=== PATIENT | male | born 1995 | race Hispanic/Latino ===

== ENCOUNTER 2017-06-10 20:43 | Emergency (ER) | payer SELFPAY ==
[2017-06-10 21:32] LABS: #Basophils 0.1 thou/uL (0.0-0.2); #Eosinphils 0.1 thou/uL (0.0-0.7); #Lymphocytes 1.8 thou/uL (1.20-3.40); #Monocytes 0.5 thou/uL (0.11-0.59); #Neutrophils 4.8 thou/uL (1.40-6.50); %Basophils 0.7 % (0.0-1.0); %Eosinophils 1.4 % (0.0-10.0); %Lymphocytes 25.1 % (21.0-51.0); %Monocytes 6.3 % (0.0-10.0); %Neutrophils 66.5 % (42.0-75.0); Hemoglobin 14.7 g/dL (14.0-18.0); Mean Corpuscular HGB CONC 35.1 g/dL (32.0-36.0); Mean Corpuscular Hemoglobin 29.4 pg (27.0-31.0); Mean Corpuscular Volume 83.7 fl (80.0-94.0); Mean Platelet Volume 7.3 fL (7.4-10.4); Platelet Count 245 thou/uL (130-400); RBC Distribution Width 11.5 % (11.5-14.5); Red Blood Cell (RBC) Count 5.02 mill/uL (4.70-6.10); White Blood Cell (WBC) Count 7.3 thou/uL (4.8-10.8)
--- NOTE | 2017-06-10 21:34 | RAD ---
TWO VIEWS OF THE CHEST: 06/10/17 COMPARISON: None. HISTORY: Chest pain. FINDINGS: Lungs are clear. Heart and mediastinal contours are unremarkable as are the osseous structures. IMPRESSION: No acute findings. POS: [facility]
[2017-06-10 21:49] LABS: ALT (SGPT) 19 U/L (8-55); AST (SGOT) 25 U/L (5-34); Albumin 4.9 g/dL (3.5-5.0); Alkaline Phosphatase 121 U/L (40-150); Anion Gap 10 mmol/L (10-20); BUN (Urea Nitrogen) 17 mg/dL (8.9-20.6); Bilirubin, Total 0.6 mg/dL (0.2-1.2); Calc. Creatinine Clearance 0 mL/min (70-130); Calcium 9.7 mg/dL (7.8-10.44); Carbon Dioxide 28 mmol/L (22-29); Chloride 106 mmol/L (98-107); Estimated GFR-MDRD Greater than 90; Glucose 86 mg/dL (70-105); Potassium 3.6 mmol/L (3.5-5.1); Protein, Total 7.9 g/dL (6.0-8.3); Sodium 140 mmol/L (136-145)
[2017-06-10 21:52] LABS: CKMB 3.6 ng/mL (0-6.6); Troponin I Less than 0.010 ng/mL (< 0.028)
[2017-06-10] MEDS ORDERED: Ibuprofen 800 MG TAB ONE (22:58)
== END 2017-06-10 23:46 | disposition home or self-care (01) ==
LOC: ERS 20:43
DX: R07.89 Other chest pain (principal); F41.9 Anxiety disorder, unspecified
CPT/HCPCS: 36415; 71046; 80053; 82553; 84484; 85025; 93005

== ENCOUNTER 2018-02-23 23:01 | Inpatient (IN) | payer SELFPAY ==
[2018-02-23] MEDS ORDERED: Pantoprazole 40 MG VIAL ONE (23:31)
[2018-02-23] MEDS ORDERED: Ondansetron PF 4 MG/2 ML Vial ONE (23:31)
[2018-02-23] MEDS ORDERED: Dicyclomine 20 MG TAB ONE ×2 (23:31→23:39)
[2018-02-23 23:33] LABS: #Eosinphils 0.1 thou/uL (0.0-0.7); #Lymphocytes 1.3 thou/uL (1.20-3.40); #Monocytes 0.7 thou/uL (0.11-0.59); #Neutrophils 11.1 thou/uL (1.40-6.50); %Basophils 0.4 % (0.0-1.0); %Lymphocytes 9.8 % (21.0-51.0); %Neutrophils 83.8 % (42.0-75.0); Hemoglobin 15.2 g/dL (14.0-18.0); Mean Corpuscular HGB CONC 33.5 g/dL (32.0-36.0); Mean Corpuscular Hemoglobin 28.7 pg (27.0-31.0); Mean Corpuscular Volume 85.8 fL (78.0-98.0); Mean Platelet Volume 8.3 fL (7.4-10.4); Platelet Count 230 thou/uL (130-400); RBC Distribution Width 11.3 % (11.5-14.5); Red Blood Cell (RBC) Count 5.29 mill/uL (4.70-6.10); White Blood Cell (WBC) Count 13.2 thou/uL (4.8-10.8)
[2018-02-23 23:41] LABS: Bilirubin Negative (Negative); Blood, Urine Negative (Negative); Clarity CLEAR (Clear); Glucose, Urine (Dipstick) Negative (Negative); Leukocyte Negative (Negative); Nitrite Negative (Negative); Protein, Urine (Dipstick) Negative (Neg-Trace); Specific Gravity, Urine 1.025 (1.002-1.036); Urobilinogen 0.2 mg/dL (0.2-1.0)
[2018-02-23] MEDS ORDERED: Lidocaine Viscous Sol 2% 15 ml UD Cup ONE (23:45)
[2018-02-23] MEDS ORDERED: Mag-Al 1200 mg/1200 mg/30 ML UDCUP ONE (23:45)
[2018-02-23 23:53] LABS: ALT (SGPT) 17 U/L (8-55); AST (SGOT) 18 U/L (5-34); Alkaline Phosphatase 125 U/L (40-150); Anion Gap 12 mmol/L (10-20); BUN (Urea Nitrogen) 12 mg/dL (8.9-20.6); Bilirubin, Total 0.5 mg/dL (0.2-1.2); Calc. Creatinine Clearance 0 mL/min (70-130); Calcium 9.6 mg/dL (7.8-10.44); Carbon Dioxide 23 mmol/L (22-29); Chloride 106 mmol/L (98-107); Estimated GFR-MDRD Greater than 90; Globulin 3.1 g/dL (2.4-3.5); Glucose 110 mg/dL (70-105); Lipase 38 U/L (8-78); Potassium 3.4 mmol/L (3.5-5.1); Protein, Total 8.1 g/dL (6.0-8.3); Sodium 138 mmol/L (136-145)
[2018-02-24] MEDS ORDERED: Morphine 4 MG/ML VIAL ONE ×2 (01:04→13:15)
[2018-02-24] MEDS ORDERED: Fentanyl 100 MCG/2 ML VIAL ONE ×3 (01:49→19:57)
[2018-02-24] MEDS ORDERED: Piperacillin/Tazobactam 3.375 GM VIAL ONE ×2 (01:51→12:47)
[2018-02-24 04:09] VITALS: BMI 27.4
[2018-02-24] MEDS ORDERED: Acetaminophen 325 MG TAB PO PRN ×3 (04:26→20:36)
[2018-02-24] MEDS ORDERED: Ondansetron PF 4 MG/2 ML Vial IVP PRN (04:26)
[2018-02-24] MEDS ORDERED: Ondansetron ODT 4 MG TAB SL PRN (04:26)
[2018-02-24] MEDS ORDERED: Morphine 4 MG/ML VIAL SLOW IVP PRN ×2 (04:26→20:43)
--- NOTE | 2018-02-24 08:18 | CT ---
PRELIMINARY REPORT/[facility]/EMERGENTY AFTER-HOURS PROCEDURE Addendum created by Yeison Steen MD on 02/24/2018 1:25 AM Central Time ([place] & [place]) THIS REPORT CONTAINS FINDINGS THAT MAY BE CRITICAL TO PATIENT CARE. The findings were verbally commun icated via telephone conference with MARLENE WALKER at 1:24 AM COMPOSITION PROFESSOR on 02/24/2018. The findings wer e acknowledged and understood. Initial Report created on 02/24/2018 1:23 AM Central Time ([place] & [place]) CT Abdomen and Pelvis With Contrast EXAM DATE/TIME: 02/24/2018 12:25 AM CLINICAL HISTORY: 23 years old, male; Pain; Abdominal pain; Generalized; Patient HX: Er 12; M23 presents to the ed C/O abd pain (generalized) onset today. PT. Reports the pain was sudden onset while driving. Associated w ith nausea and urinary retention. Denies HX of gi issues. Denies vomiting TECHNIQUE: Axial computed tomography images of the abdomen and pelvis with intravenous contrast. Coronal reformatted images were created and reviewed. COMPARISON: No relevant prior studies available. FINDINGS: Lower thorax: No acute findings. ABDOMEN: Liver: Normal. Gallbladder and bile ducts: Normal. Pancreas: Normal. Spleen: Normal. Adrenals: Normal. Kidneys and ureters: Normal. Stomach and bowel: Normal. Appendix: Appendix is abnormally dilated, measuring 11 mm in maximal diameter. Mild appendiceal wall thickening and hyper enhancement, with minimal periappendiceal inflammatory stranding. No perforation or abscess. Appendix is located in retrocecal position. PELVIS: Bladder: Unremarkable as visualized. Reproductive: Unremarkable as visualized. ABDOMEN and PELVIS: Intraperitoneal space: Normal. No free air. No significant fluid collection. Bones/joints: No acute abnormality. Soft tissues: Normal. Vasculature: Normal. No abdominal aortic aneurysm. Lymph nodes: Normal. No enlarged lymph nodes. IMPRESSION: Acute appendicitis, without evidence of perforation or abscess. Appendix in retrocecal position. Thank you for allowing us to participate in the care of your patient. Dictated and Authenticated by: Yeison Steen MD 02/24/2018 1:23 AM Central Time ([place] & Lit) FINAL REPORT CT ABDOMEN WITH CONTRAST CT PELVIS WITH CONTRAST: History: Nausea. Generalized abdominal pain. Comparison: None. FINDINGS: This report is in agreement with the preliminary report by [facility]. There is a appendicitis. No CT eviden ce of abscess or perforation. POS: [facility]
[2018-02-24] MEDS: D5 0.9% NS w/ 20 mEq KCl 1,000 ML IV SCH ×2 (09:07→17:46)
[2018-02-24 09:31] LABS: #Eosinphils 0.1 thou/uL (0.0-0.7); #Lymphocytes 1.5 thou/uL (1.20-3.40); #Monocytes 0.6 thou/uL (0.11-0.59); #Neutrophils 8.4 thou/uL (1.40-6.50); %Basophils 0.3 % (0.0-1.0); %Eosinophils 1.2 % (0.0-10.0); %Lymphocytes 14.2 % (21.0-51.0); %Monocytes 5.3 % (0.0-10.0); Hemoglobin 14.2 g/dL (14.0-18.0); Mean Corpuscular HGB CONC 34.1 g/dL (32.0-36.0); Mean Corpuscular Hemoglobin 29.4 pg (27.0-31.0); Mean Corpuscular Volume 86.3 fL (78.0-98.0); Mean Platelet Volume 8.1 fL (7.4-10.4); Platelet Count 188 thou/uL (130-400); RBC Distribution Width 11.4 % (11.5-14.5); Red Blood Cell (RBC) Count 4.84 mill/uL (4.70-6.10); White Blood Cell (WBC) Count 10.7 thou/uL (4.8-10.8)
[2018-02-24] MEDS ORDERED: ISOVUE-370 76%-LOCM 1 ML ONE (11:28)
[2018-02-24] MEDS: Piperacillin/Tazobactam 3.375 GM in Sodium Chloride 0.9% 100 ML IVPB SCH ×3 (11:50→23:01)
[2018-02-24] MEDS ORDERED: Sodium Chloride 0.9% 100 ML ONE (12:48)
--- NOTE | 2018-02-24 13:12 | HP ---
HISTORY OF PRESENT ILLNESS: Mr. Jalyn Gale is a 23-year-old man, who developed sudden onset of upper central abdominal pain yesterday evening about 2 hours after eating. He was driving at that time and went home and decided to take a nap, but kept waking up with the pain, which was getting worse. He had nausea, but was unable to vomit. He denies any fevers or chills. He came into the emergency room and was found to have an elevated white count and a CT which showed evidence of retrocecal appendicitis. He was admitted and placed on IV antibiotics and pain medication and is feeling slightly better today, but still has the pain. The pain is made worse by walking and improved by pain medication. He is unable to identify any other triggering or alleviating factors. PAST MEDICAL HISTORY: None. PAST SURGICAL HISTORY: None. ALLERGIES: NO KNOWN DRUG ALLERGIES. MEDICATIONS: No medications. FAMILY HISTORY: None. REVIEW OF SYSTEMS: Ten-system review of systems is negative except per HPI. SOCIAL HISTORY: The patient does not smoke, drink, or use illicit drugs. 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 LABORATORY DATA: White count was elevated on admission at 13, today it is 10.7, which is upper normal, but he still has a left shift. CT images are reviewed and I agree with the written report. The patient has an inflamed, dilated retrocecal appendix. PHYSICAL EXAMINATION: VITAL SIGNS: The patient has been afebrile since his admission with normal vital signs. GENERAL: Reveals a healthy-appearing man, who is in no acute distress. He is not flushed or toxic in appearance. He is not jaundiced or icteric. HEENT: Unremarkable. NECK: Supple without lymphadenopathy or thyroid nodules. HEART: Regular in its rate and rhythm without murmurs, rubs, or gallops. LUNGS: Clear to auscultation bilaterally. ABDOMEN: Soft and nondistended. He has not had any palpable masses or hernias. He is very tender to palpation in the right lower quadrant and mildly tender to palpation elsewhere, although he indicates the point of greatest pain in the supraumbilical area, and pain does radiate to that area with palpation in the right lower quadrant. EXTREMITIES: Warm and well perfused without edema. NEURO: No focal deficits. PSYCHIATRIC: Alert, oriented, and appropriate. ASSESSMENT: Acute appendicitis. PLAN: Laparoscopic appendectomy. The patient's diagnosis and recommended treatment were discussed with him. Inherent risks of surgery were also discussed. These include, but are not limited to, bleeding, infection, risks of anesthesia, damage to nearby structures including bowel, bladder, and blood vessels, need for open surgery or other procedures. He understands and accepts these risks and wishes to proceed. He has been proceeded for the operating room and is on scheduled Zosyn in the interim. All of his questions were answered. Job ID: [id number]
[2018-02-24] MEDS ORDERED: Lidocaine 1% PF 5 ML VIAL ONE (16:21)
[2018-02-24] MEDS ORDERED: Succinylcholine Chloride 20 MG/ML 10 ml SYRINGE FS ONE (16:21)
[2018-02-24] MEDS ORDERED: Dexamethasone 20 MG/5 ML VIAL ONE (16:21)
[2018-02-24] MEDS ORDERED: Rocuronium Bromide 10 MG/ML (10ML VIAL) ONE (16:21)
[2018-02-24] MEDS ORDERED: Glycopyrrolate 0.2 MG/ML 5 ML SYRINGE ONE (16:21)
[2018-02-24] MEDS ORDERED: PROPOFOL 200 MG/20 ML VIAL ONE (16:21)
[2018-02-24] MEDS ORDERED: Ondansetron PF 4 MG/2 ML Vial ONE (16:21)
[2018-02-24] MEDS ORDERED: Bupivacaine/Epinephrine 0.25% 30 ML VIAL ONE (17:18)
[2018-02-24] MEDS ORDERED: Midazolam HCl 2 mg/2 ml Vial ONE (18:14)
[2018-02-24] MEDS ORDERED: Fentanyl 250 MCG/5 ML VIAL ONE (18:14)
[2018-02-24] MEDS ORDERED: Promethazine HCl 25 MG/ML VIAL IM PRN (19:34)
[2018-02-24] MEDS ORDERED: Ondansetron HCl/PF 4 MG/2 ML Vial IVP PRN (19:34)
[2018-02-24] MEDS ORDERED: Promethazine HCl 25 MG/ML VIAL SLOW IVP PRN (19:34)
[2018-02-24] MEDS ORDERED: HYDROcodone/Acetaminophen 5/325 mg Tablet PO PRN (20:33)
[2018-02-24] MEDS ORDERED: Ibuprofen 200 MG TAB PO PRN ×2 (20:36→20:37)
[2018-02-24] MEDS ORDERED: Ibuprofen 600 MG TAB PO PRN (20:38)
[2018-02-24] MEDS ORDERED: Promethazine 25 MG TAB PO PRN (20:40)
[2018-02-24] MEDS ORDERED: Ondansetron ODT 4 MG TAB PO PRN (20:42)
[2018-02-24] MEDS ORDERED: Ondansetron PF 4 MG/2 ML Vial SLOW IVP PRN (20:42)
[2018-02-24] MEDS ORDERED: Morphine 2 MG/ML SYRINGE SLOW IVP PRN (20:43)
[2018-02-24] MEDS: D5 1/2 NS w/20 mEq KCL 1,000 ML IV SCH (21:51)
[2018-02-24] MEDS: HYDROcodone/Acetaminophen 5/325 mg Tablet PO PRN (23:01)
[2018-02-25] MEDS: HYDROcodone/Acetaminophen 5/325 mg Tablet PO PRN ×2 (03:36→07:24)
[2018-02-25 03:46] VITALS: TEMP 98
[2018-02-25] MEDS: Piperacillin/Tazobactam 3.375 GM in Sodium Chloride 0.9% 100 ML IVPB SCH ×2 (05:23→11:37)
[2018-02-25 06:31] LABS: #Lymphocytes 0.5 thou/uL (1.20-3.40); #Monocytes 0.1 thou/uL (0.11-0.59); #Neutrophils 9.3 thou/uL (1.40-6.50); %Basophils 0.1 % (0.0-1.0); %Lymphocytes 5.3 % (21.0-51.0); %Monocytes 1.3 % (0.0-10.0); %Neutrophils 93.2 % (42.0-75.0); Hemoglobin 15.1 g/dL (14.0-18.0); Mean Corpuscular HGB CONC 33.6 g/dL (32.0-36.0); Mean Corpuscular Hemoglobin 29.1 pg (27.0-31.0); Mean Corpuscular Volume 86.5 fL (78.0-98.0); Mean Platelet Volume 8.3 fL (7.4-10.4); Platelet Count 209 thou/uL (130-400); RBC Distribution Width 11.2 % (11.5-14.5); Red Blood Cell (RBC) Count 5.18 mill/uL (4.70-6.10)
[2018-02-25] MEDS: D5 1/2 NS w/20 mEq KCL 1,000 ML IV SCH (06:34)
[2018-02-25 06:45] LABS: Anion Gap 13 mmol/L (10-20); BUN (Urea Nitrogen) 8 mg/dL (8.9-20.6); Calc. Creatinine Clearance 130 mL/min (70-130); Calcium 9.7 mg/dL (7.8-10.44); Carbon Dioxide 24 mmol/L (22-29); Chloride 104 mmol/L (98-107); Estimated GFR-MDRD Greater than 90; Glucose 127 mg/dL (70-105); Sodium 137 mmol/L (136-145)
[2018-02-25] MEDS ORDERED: traMADol HCl 50 MG TAB PO PRN ×2 (11:58)
[2018-02-25] MEDS ORDERED: HYDROcodone/Acetaminophen 7.5/325 mg Tablet PO PRN (11:58)
--- NOTE | 2018-02-25 12:12 | PDOC.OP ---
Operative Note - Operative Note Operative Note: PROCEDURE: Laparoscopic appendectomy SURGEON: Cynthia Salmeron M.D. DATE OF PROCEDURE: 02/24/2018 PREOPERATIVE DIAGNOSIS: Appendicitis POSTOPERATIVE DIAGNOSIS: Appendicitis HISTORY: Patient with a one day history of right-sided abdominal pain and acute appendicitis by CT scan. Recommendation was made to proceed with laparoscopic appendectomy. FINDINGS: Acutely inflamed retrocecal appendicitis without perforation. DESCRIPTION OF PROCEDURE: After informed consent was obtained and appropriate antibiotics continued, the patient was taken to the operating room and placed in the supine position and general endotracheal anesthesia was administered. The bladder was decompressed with a Collins catheter and the abdomen was prepped and draped in the standard sterile fashion. Local anesthesia was infused to the skin and subcutaneous tissues superior to the umbilicus. A transverse skin incision was made and a Veress needle placed into the abdominal cavity and carbon dioxide gas insufflated without difficulty. Opening pressure was less than 5. Carbon dioxide gas was insufflated to an intra-abdominal pressure 15 and the patient tolerated this well. The Veress needle was withdrawn and a [place] port advanced under direct laparoscopic vision into the abdominal cavity. Two additional ports were placed in the suprapubic and left lateral abdomen under direct laparoscopic vision after local anesthesia was infused at these sites. The appendix was identified and appeared inflamed but not perforated. The appendix was grasped by the mesoappendix and elevated. The mesoappendix was then sequentially ligated and divided down to the base of the appendix, which was normal in appearance and was clearly seen to be at the confluence of the tenia. Two Endoloops were placed around the base of the appendix and the appendix was divided between these Endoloops, placed into an EndoCatch bag and drawn out through the suprapubic incision. The suprapubic trocar was then replaced and the operative site was easily irrigated to clear. The suprapubic trocar was removed and the fascia closed under direct laparoscopic vision with a 0 Vicryl suture on a GraNee needle with excellent technical result. The left lateral trocar was then removed and hemostasis verified. Carbon dioxide gas was desufflated through the umbilical trocar which was then removed. Due to the patient's thin body habitus, the fascia at the umbilical incision was visible and this was closed under direct vision with a 0 Vicryl suture on a UR 6 needle with excellent technical result. The skin incisions were irrigated and additional local anesthesia infused at each site. The skin was closed with 4-0 subcuticular Monocryl sutures and Dermabond dressings were placed. The patient was extubated and taken to the recovery room in good condition. Estimated blood loss was minimal. There were no complications. SPECIMEN: Appendix.
[2018-02-25 12:37] VITALS: BP 134/77
[2018-02-25] MEDS: HYDROcodone/Acetaminophen 7.5/325 mg Tablet PO PRN ×2 (13:01→16:44)
--- NOTE | 2018-02-27 11:46 | EKG ---
Test Reason : Blood Pressure : / mmHG Vent. Rate : 065 BPM Atrial Rate : 065 BPM P-R Int : 154 ms QRS Dur : 092 ms QT Int : 384 ms P-R-T Axes : 063 077 051 degrees QTc Int : 399 ms Normal sinus rhythm with sinus arrhythmia Nonspecific ST and T wave abnormality Abnormal ECG Confirmed by MARLENE WALKER ([id number]), editorial clerk THELMA GEORGE ([id number]) on 02/27/2018 11:45:55 AM Referred By: Confirmed By:MARLENE WALKER
== END 2018-02-25 16:50 | disposition home or self-care (01) | DRG 343 ==
LOC: ERS 23:01 → ERHOLD 02-24 02:07 → T4-B 02-24 03:54
PROVIDERS: ADMIT Specialist; ATTEND Specialist
PROC: 0DTJ4ZZ Resection of Appendix, Percutaneous Endoscopic Approach (ICD-10-PCS; principal; 2018-02-24)
DX: K35.80 Unspecified acute appendicitis (principal)
CPT/HCPCS: 36415; 74177; 80048; 80053; 81003; 83690; 85025; 88304; 93005; 96361; 96365; 96375; 96376; C9113; J1100; J2001; J2250; J2270; J2405; J2543; J2704; J3010; J7050

== ENCOUNTER 2018-03-07 20:53 | Emergency (ER) | payer SELFPAY ==
[~2018-03-07 20:53] MED LIST: Iopamidol 370 76% 100 ML VIAL ONE
[2018-03-07 21:28] LABS: #Basophils 0.1 thou/uL (0.0-0.2); #Eosinphils 0.1 thou/uL (0.0-0.7); #Lymphocytes 1.4 thou/uL (1.20-3.40); #Monocytes 0.4 thou/uL (0.11-0.59); #Neutrophils 4.8 thou/uL (1.40-6.50); %Basophils 0.9 % (0.0-1.0); %Eosinophils 1.3 % (0.0-10.0); %Monocytes 6.1 % (0.0-10.0); %Neutrophils 70.7 % (42.0-75.0); Hemoglobin 16.5 g/dL (14.0-18.0); Mean Corpuscular HGB CONC 33.5 g/dL (32.0-36.0); Mean Corpuscular Volume 86.5 fL (78.0-98.0); Platelet Count 216 thou/uL (130-400); RBC Distribution Width 11.1 % (11.5-14.5); White Blood Cell (WBC) Count 6.7 thou/uL (4.8-10.8)
[2018-03-07 21:48] LABS: ALT (SGPT) 17 U/L (8-55); AST (SGOT) 22 U/L (5-34); Albumin 5.2 g/dL (3.5-5.0); Alkaline Phosphatase 112 U/L (40-150); Anion Gap 14 mmol/L (10-20); BUN (Urea Nitrogen) 11 mg/dL (8.9-20.6); Bilirubin, Total 0.7 mg/dL (0.2-1.2); Calc. Creatinine Clearance 0 mL/min (70-130); Calcium 10.5 mg/dL (7.8-10.44); Carbon Dioxide 27 mmol/L (22-29); Chloride 104 mmol/L (98-107); Estimated GFR-MDRD 84; Globulin 3.3 g/dL (2.4-3.5); Glucose 94 mg/dL (70-105); Potassium 3.8 mmol/L (3.5-5.1); Protein, Total 8.5 g/dL (6.0-8.3); Sodium 141 mmol/L (136-145)
[2018-03-07] MEDS ORDERED: Ketorolac Tromethamine 30 MG/ML VIAL ONE (23:05)
--- NOTE | 2018-03-07 23:29 | CT ---
CT ABDOMEN AND PELVIS WITH IV CONTRAST: History: Abdominal pain. Recent appendectomy. Comparison: 02-24-18 FINDINGS: Lung bases are clear. The liver, spleen, kidneys, adrenal glands, and pancreas have a normal CT appea melody. The appendix is now surgically absent. Small pockets of gas posterior to the right colon are c onsistent with recent surgery. Small amount of free air within the anterior abdomen remains. IMPRESSION: Recent post-operative changes of the right lower quadrant. No evidence of complication. POS: [facility]
[2018-03-07 23:54] LABS: Bilirubin Negative (Negative); Blood, Urine Negative (Negative); Clarity CLEAR (Clear); Glucose, Urine (Dipstick) Negative (Negative); Leukocyte Negative (Negative); Nitrite Negative (Negative); Protein, Urine (Dipstick) Negative (Neg-Trace); Urobilinogen 0.2 mg/dL (0.2-1.0); pH, Urine 7.5 (5.0-9.0)
[2018-03-07 23:58] LABS: Specific Gravity, Urine Greater than 1.060 (1.002-1.036)
[2018-03-08 00:01] LABS: Bacteria/HPF None Seen HPF (None Seen); Hyaline Casts/LPF 0-3 HYALINE CAST LPF (0-3 Hyaline); RBC/HPF None Seen HPF (0-3); Squamous Epithelial None Seen HPF (0-3); WBC/HPF None Seen HPF (0-3)
== END 2018-03-08 00:19 | disposition home or self-care (01) ==
LOC: ERS 20:53
DX: R10.32 Left lower quadrant pain (principal); Z79.891 Long term (current) use of opiate analgesic
CPT/HCPCS: 36415; 74177; 80053; 81001; 83690; 85025; 96374; J1885; Q9967

== ENCOUNTER 2018-04-28 15:44 | Emergency (ER) | payer SELFPAY ==
[~2018-04-28 15:44] MED LIST changes: +ISOVUE-370 76%-LOCM 1 ML ONE; -Iopamidol 370 76% 100 ML VIAL ONE
[2018-04-28 20:58] LABS: #Lymphocytes 0.5 thou/uL (1.20-3.40); #Monocytes 0.7 thou/uL (0.11-0.59); #Neutrophils 10.5 thou/uL (1.40-6.50); %Basophils 0.2 % (0.0-1.0); %Eosinophils 0.1 % (0.0-10.0); %Lymphocytes 4.1 % (21.0-51.0); %Monocytes 5.6 % (0.0-10.0); %Neutrophils 89.9 % (42.0-75.0); Hemoglobin 13.6 g/dL (14.0-18.0); Mean Corpuscular HGB CONC 33.6 g/dL (32.0-36.0); Mean Corpuscular Hemoglobin 29.2 pg (27.0-31.0); Mean Corpuscular Volume 86.8 fL (78.0-98.0); Mean Platelet Volume 7.8 fL (7.4-10.4); Platelet Count 188 thou/uL (130-400); RBC Distribution Width 11.3 % (11.5-14.5); Red Blood Cell (RBC) Count 4.68 mill/uL (4.70-6.10); White Blood Cell (WBC) Count 11.7 thou/uL (4.8-10.8)
--- NOTE | 2018-04-28 21:11 | CT ---
CT ABDOMEN AND PELVIS WITH CONTRAST: 04/28/18 HISTORY: Abdominal pain. COMPARISON: CT abdomen and pelvis 03/07/18. FINDINGS: Lung bases are clear. No pericardial effusion. The spleen is unremarkable as well as the liver and gallbladder and pancreas. Adrenal glands are unre markable. Kidneys are unremarkable. The aortic contour is nonaneurysmal. There is mild diverticular disease of the sigmoid colon. No active inflammation. No dilated loops of large or small bowel. There is some mucosal edema and mild thickening of the ascending colon. Mild th ickening of the terminal ileum. IMPRESSION: Mild thickening of the colon may be sequela of underdistention. No acute inflammatory process within the abdomen or pelvis. POS: [facility]
[2018-04-28 21:14] LABS: ALT (SGPT) 14 U/L (8-55); AST (SGOT) 17 U/L (5-34); Albumin 4.5 g/dL (3.5-5.0); Alkaline Phosphatase 99 U/L (40-150); Anion Gap 12 mmol/L (10-20); BUN (Urea Nitrogen) 9 mg/dL (8.9-20.6); Calc. Creatinine Clearance 0 mL/min (70-130); Calcium 9.5 mg/dL (7.8-10.44); Carbon Dioxide 23 mmol/L (22-29); Chloride 103 mmol/L (98-107); Estimated GFR-MDRD Greater than 90; Globulin 2.6 g/dL (2.4-3.5); Glucose 99 mg/dL (70-105); Potassium 3.2 mmol/L (3.5-5.1); Protein, Total 7.1 g/dL (6.0-8.3); Sodium 135 mmol/L (136-145)
[2018-04-28] MEDS ORDERED: Ketorolac Tromethamine 30 MG/ML VIAL ONE (21:28)
== END 2018-04-28 21:45 | disposition home or self-care (01) ==
LOC: ERS 15:44
DX: M79.604 Pain in right leg (principal)
CPT/HCPCS: 36415; 74177; 80053; 85025; 96374; J1885; Q9966

== ENCOUNTER 2018-04-29 18:59 | Inpatient (IN) | payer SELFPAY ==
[2018-04-29] MEDS ORDERED: Ondansetron PF 4 MG/2 ML Vial ONE (19:47)
[2018-04-29 20:02] LABS: #Basophils 0.1 thou/uL (0.0-0.2); #Lymphocytes 0.2 thou/uL (1.20-3.40); #Monocytes 0.6 thou/uL (0.11-0.59); #Neutrophils 9.1 thou/uL (1.40-6.50); %Basophils 1.2 % (0.0-1.0); %Eosinophils 0.1 % (0.0-10.0); %Lymphocytes 2.2 % (21.0-51.0); %Monocytes 5.7 % (0.0-10.0); %Neutrophils 90.9 % (42.0-75.0); Hemoglobin 14.8 g/dL (14.0-18.0); Mean Corpuscular HGB CONC 33.9 g/dL (32.0-36.0); Mean Corpuscular Hemoglobin 28.9 pg (27.0-31.0); Mean Corpuscular Volume 85.2 fL (78.0-98.0); Mean Platelet Volume 7.5 fL (7.4-10.4); Platelet Count 186 thou/uL (130-400); RBC Distribution Width 11.6 % (11.5-14.5); Red Blood Cell (RBC) Count 5.13 mill/uL (4.70-6.10)
[2018-04-29] MEDS ORDERED: Ketorolac Tromethamine 30 MG/ML VIAL ONE (20:02)
[2018-04-29] MEDS ORDERED: Morphine 4 MG/ML VIAL ONE (20:25)
[2018-04-29 20:27] LABS: ALT (SGPT) 17 U/L (8-55); AST (SGOT) 19 U/L (5-34); Albumin 4.8 g/dL (3.5-5.0); Alkaline Phosphatase 108 U/L (40-150); Anion Gap 16 mmol/L (10-20); BUN (Urea Nitrogen) 12 mg/dL (8.9-20.6); Bilirubin, Total 1.1 mg/dL (0.2-1.2); Calc. Creatinine Clearance 0 mL/min (70-130); Calcium 10.3 mg/dL (7.8-10.44); Carbon Dioxide 21 mmol/L (22-29); Chloride 102 mmol/L (98-107); Estimated GFR-MDRD 79; Globulin 3.4 g/dL (2.4-3.5); Glucose 99 mg/dL (70-105); Lipase 9 U/L (8-78); Protein, Total 8.2 g/dL (6.0-8.3); Sodium 136 mmol/L (136-145)
--- NOTE | 2018-04-29 22:20 | CT ---
CT ABDOMEN AND PELVIS WITH CONTRAST: 04/29/18 HISTORY: Abdominal pain. COMPARISON: CT abdomen and pelvis 04/28/18. FINDINGS: Lung bases are clear. No pericardial effusion. The spleen is unremarkable as well as the pancreas, liver, and adrenal glands. There is high density material within the gallbladder likely contrast from the patient's CT examination yesterday. There are no dilated loops of large or small bowel. Continued mild thickening of the terminal ileum. New from the comparison examination from yesterday is inflammation around the right superficial ingui nal lymph node which measures 14 mm in short axis dimension. There is a right deep inguinal lymph nod e measuring 9 mm in short axis. No significant internal iliac adenopathy. No ventral hernia. No inguinal hernia. IMPRESSION: New from the comparison examination, inflammation along the right superficial inguinal lymph node steve suring 14 mm in short axis. Recommend correlation for a distal right lower extremity inflammatory pro cess. POS: [facility]
[2018-04-29] MEDS ORDERED: Ampicillin/Sulbactam 3 GM in Sodium Chloride 0.9% 100 ML IVPB SCH (22:30)
[2018-04-30] MEDS ORDERED: Ondansetron PF 4 MG/2 ML Vial IVP PRN (01:42)
[2018-04-30] MEDS ORDERED: Acetaminophen 325 MG TAB PO PRN (01:42)
[2018-04-30] MEDS: Sodium Chloride 0.9% 1,000 ML IV SCH ×3 (02:32→17:50)
[2018-04-30 02:35] LABS: #Lymphocytes 0.6 thou/uL (1.20-3.40); #Monocytes 0.6 thou/uL (0.11-0.59); #Neutrophils 6.9 thou/uL (1.40-6.50); %Basophils 0.2 % (0.0-1.0); %Eosinophils 0.1 % (0.0-10.0); %Lymphocytes 7.6 % (21.0-51.0); %Monocytes 6.9 % (0.0-10.0); %Neutrophils 85.2 % (42.0-75.0); Hemoglobin 13.9 g/dL (14.0-18.0); Mean Corpuscular Hemoglobin 29.6 pg (27.0-31.0); Mean Corpuscular Volume 87.2 fL (78.0-98.0); Mean Platelet Volume 7.7 fL (7.4-10.4); Platelet Count 164 thou/uL (130-400); RBC Distribution Width 11.4 % (11.5-14.5); White Blood Cell (WBC) Count 8.1 thou/uL (4.8-10.8)
--- NOTE | 2018-04-30 02:49 | PDOC.EVN ---
Event Note - Event Note Event Note: H&P [id number]
[2018-04-30] MEDS: Potassium Chloride 20 MEQ TAB PO SCH ×2 (03:00→03:32)
[2018-04-30 03:07] LABS: Anion Gap 12 mmol/L (10-20); BUN (Urea Nitrogen) 10 mg/dL (8.9-20.6); Calc. Creatinine Clearance 0 mL/min (70-130); Calcium 9.4 mg/dL (7.8-10.44); Carbon Dioxide 27 mmol/L (22-29); Chloride 103 mmol/L (98-107); Estimated GFR-MDRD 78; Glucose 105 mg/dL (70-105); Potassium 3.5 mmol/L (3.5-5.1); Sodium 138 mmol/L (136-145)
[2018-04-30 03:14] LABS: HIV (1/2) Antibody/Antigen Non-Reactive (NonReactive); HIV 1/2 INDEX 0.14 S/CO (<1.00)
--- NOTE | 2018-04-30 03:19 | HP ---
CHIEF COMPLAINT: Right groin pain as well as right leg cellulitis. HISTORY OF PRESENT ILLNESS: This is a 23-year-old male presenting to the hospital with right groin pain as well as having right lower extremity edema. The patient CT scan done and did not have any findings at that point in time. Appendix has been taken out. The patient was noted to have inflamed lymph node in the right groin of 9 cm in nature as well as another one that was a 14 mm in nature. The patient states that he did not have any fevers or chills at home. The patient denies any nausea, vomiting, diarrhea, constipation, chest pain, fevers, or shortness of breath. The patient states that these symptoms started approximately 1 month ago. The patient presented to the ER, otherwise, relatively stable and girlfriend at bedside. The patient had a detailed history performed. States that he does not perform any unconventional sexual activities, has only 1 sexual partner and has not had any interactions with anyone who has any disease processes. The patient is seen and examined in the ER. All questions answered. ALLERGIES: NO KNOWN DRUG ALLERGIES. HOME MEDICATIONS: None. PAST MEDICAL HISTORY: None. SOCIAL HISTORY: Nondrinker, nonsmoker. FAMILY HISTORY: None. REVIEW OF SYSTEMS: All systems reviewed, pertinent positive in HPI, otherwise negative. PHYSICAL EXAMINATION: VITAL SIGNS: Blood pressure is 120/80, respiratory rate of 18, temperature of 98, O2 saturation 99% on room air. GENERAL: Lying in bed, in no acute discomfort. NECK: Supple, mobile, nontender. Thyroid appreciated. CARDIOVASCULAR: Regular rate and rhythm. S1, S2. No murmurs, rubs, or gallops appreciated. PULMONARY: Clear to auscultation bilaterally. No increase in AP diameter. ABDOMEN: Positive bowel sounds. Soft, nontender in the upper quadrants; however, in right lower quadrant, he did have some abdominal tenderness as well as with right hip flexion. EXTREMITIES: 2+ pedal pulses. No cyanosis, clubbing, or edema noted. Right lower extremity on the medial side, the patient did have cellulitic rash present as well. NEUROLOGICAL: Cranial nerves 2 through 12 intact. No loss of motor or sensory function. LABORATORY DATA: CBC normal. Basic metabolic panel normal except for a potassium of 3. ASSESSMENT: 1. Right inguinal lymphadenopathy. 2. Right lower extremity cellulitis. PLAN: At this point in time, it appears indeterminate as to what is going on with the patient's lymph node. We will consult Infectious Disease. We will obtain blood cultures HIV. The patient given antibiotics in the ER. However, at this point in time, given no signs of SIRS or sepsis, we will hold off on any antibiotics. Full supportive care to be done, p.r.n. pain medications to be done. The patient wishes to remain a full code. We will await subspecialist input as well as workup results to be obtained and then adjust patient's plan of care. The patient's condition, prognosis, case and plan discussed with the patient's girlfriend at length. They understand and agree with this plan. Job ID: [id number]
[2018-04-30] MEDS: Morphine 4 MG/ML VIAL SLOW IVP PRN ×4 (03:27→22:48)
[2018-04-30] MEDS ORDERED: Promethazine HCl 12.5 MG in Sodium Chloride 0.9% 50 ML IVPB PRN (04:40)
[2018-04-30] MEDS: Ampicillin/Sulbactam 3 GM in Sodium Chloride 0.9% 100 ML IVPB SCH ×2 (04:45→09:30)
[2018-04-30] MEDS ORDERED: HYDROmorphone 2 MG TAB PO SCH (05:00)
[2018-04-30] MEDS ORDERED: Lorazepam 2 MG/ML VIAL ONE (05:10)
[2018-04-30] MEDS: Ketorolac Tromethamine 30 MG/ML VIAL IVP SCH ×4 (05:11→20:42)
--- NOTE | 2018-04-30 05:31 | PDOC.EVN ---
Event Note - Event Note Event Note: Nurse paged me as the patient was apparently in significant pain and passing out. The patient was hyperventilating and passing out. Patient evaluated by IM and ER attending. Nonrebreather placed and patient stabilized. The patient was given ativan + toradol + morphine + phenergan + zofran. Stat CT of head/chest/ abd/pelvis ordered WITH contrast. Vital signs stable. Benadryl 25mg IV x 1 dose also available to nurse PRN to help sleep. Case and plan d/w patient and family at length, they understand and agree with this plan.
[2018-04-30] MEDS ORDERED: diphenhydrAMINE 50 MG in Sodium Chloride 0.9% 50 ML IVPB SCH (05:45)
[2018-04-30] MEDS ORDERED: diphenhydrAMINE 50 MG/ML VIAL IVP SCH (06:00)
[2018-04-30] MEDS: Heparin 5,000 UNITS/ML VIAL SC SCH ×2 (09:30→20:41)
--- NOTE | 2018-04-30 11:19 | CON ---
DATE OF CONSULTATION: 04/30/2018 REASON FOR CONSULTATION: ICU management. HISTORY OF PRESENT ILLNESS: This is a 23-year-old male who was brought to the hospital yesterday with significant right lower extremity pain and cellulitis with inguinal adenopathy. Apparently, he became very distressed from the pain last night and may have "passed out." He now looks okay. He complains of pain throughout originating from his right leg going to the groin up to his abdomen up to his chest. PAST MEDICAL HISTORY: He has had cellulitis in the past. He has also had chlamydial STD in the past. PAST SURGICAL HISTORY: None. SOCIAL HISTORY: Denies alcohol use, tobacco use, or illicit drug use. He works as a commercial construction superintendent. MEDICATIONS: Prior to admission none. FAMILY MEDICAL HISTORY: Unremarkable. ALLERGIES: NONE. REVIEW OF SYSTEMS: A 12-point review of systems is otherwise negative. PHYSICAL EXAMINATION: VITAL SIGNS: Temperature 100, pulse 105, blood pressure 127/69, O2 saturation 100%. NEUROLOGICAL: He is alert and oriented. No focal deficits noted throughout. HEENT: Unremarkable. NECK: No JVD. LUNGS: Clear to auscultation. CARDIAC: S1 and S2, regular without murmur. ABDOMEN: Soft. Diffuse mild tenderness to deep palpation. No hepatomegaly. EXTREMITIES: He has some inguinal adenopathy in his right groin. He has no penile swelling. No scrotal pain. He has an area of mild cellulitis noted in his anterior tibial region with no diffuse rash. LABORATORY DATA: White blood cell count 8.1, hematocrit 41.0, and platelet count 164. Sodium 138, potassium 3.5, chloride 103, CO2 of 27, BUN 10, creatinine 1.1, glucose 105. HIV test was nonreactive. CTs of the abdomen and pelvis were negative. ASSESSMENT: Cellulitis. PLAN: Agree with IV Unasyn and pain management. The patient can likely be transferred out to the medical floor. I would suggest Infectious Disease consultation. I do not think he needs any further imaging at this time, so I have canceled the CT of the brain, abdomen, and chest as he just had the abdomen and pelvis done earlier with no significant findings. Job ID: [id number]
[2018-04-30] MEDS: cefTRIAXone\\ROCEPHIN 1 GM in Sodium Chloride 0.9% 100 ML IVPB SCH (13:11)
[2018-04-30] MEDS: Acetaminophen 325 MG TAB PO SCH ×2 (15:42→20:41)
--- NOTE | 2018-04-30 16:24 | CON ---
DATE OF CONSULTATION: REASON FOR CONSULTATION: Cellulitis of the right leg. HISTORY OF PRESENT ILLNESS: A 23-year-old who recently had an appendectomy when he presented with acute abdomen. The procedure was uneventful, but a few days later, he developed pain in the groin and then fever and was admitted, obviously had cellulitis in the right leg. No headaches. No visual symptoms, sore throat, odynophagia, or dysphagia. No cough, sputum production, or chest pain. Minimal abdominal symptoms. Voiding without difficulty. No neurological symptoms. PAST MEDICAL HISTORY: Recent appendectomy for acute appendicitis management. ALLERGIES: NONE. MEDICATIONS: Had not been taking any medications. Currently, he was on Unasyn. SOCIAL HISTORY: Never smoker. No drug use. FAMILY HISTORY: Noncontributory. PHYSICAL EXAMINATION: VITAL SIGNS: T-max 100, blood pressure 106/69, pulse 106, respirations 19, and O2 saturation 100. SKIN: Shows the area of circumferential erythema not very prominent in the right leg. He has inflammatory lymphadenitis in the right groin, a little bit of lymphangitis. Peripheral IV access. No Collins catheter. No lymphadenopathy. HEENT: Normal. NECK: Supple. LUNGS: Symmetric, clear breath sounds. HEART: S1 and S2. Regular rate. No S3 or S4. ABDOMEN: Soft, not distended or tender. No ascites. No bladder distention. NEURO: Otherwise, nonfocal. LABORATORY DATA: White cell count 10 and 8.1, hemoglobin 13.9, and platelets 164. Chemistry is fairly unremarkable. The serology with negative HIV serology. Influenza negative. ASSESSMENT: Recent appendectomy for acute appendicitis, now with cellulitis of right leg. DISCUSSION: The patient has had previous episodes of cellulitis and we will transition him to Rocephin since beta-hemolytic streptococcal cellulitis is most likely scenario. After that, oral Keflex for discharge planning and then PCN VK for suppressive therapy for 1 year after that. Predisposing factor likely onychomycosis in feet and toenails and this needs to be treated to completion in the outpatient setting to prevent the recrudescence. Job ID: [id number] MTDD
[2018-04-30] MEDS: Famotidine 20 MG TAB PO SCH (20:41)
[2018-04-30] MEDS: Ondansetron PF 4 MG/2 ML Vial IVP PRN (22:49)
[2018-05-01] MEDS: Zolpidem Tartrate 5 MG TAB PO PRN ×2 (00:11→23:53)
[2018-05-01] MEDS ORDERED: Docusate 100 MG CAP PO SCH (01:15)
[2018-05-01] MEDS: Docusate 100 MG CAP PO SCH ×3 (01:38→21:58)
[2018-05-01] MEDS: Morphine 4 MG/ML VIAL SLOW IVP PRN ×3 (03:06→23:54)
[2018-05-01] MEDS: Ketorolac Tromethamine 30 MG/ML VIAL IVP SCH ×4 (03:06→21:58)
[2018-05-01] MEDS: Sodium Chloride 0.9% 1,000 ML IV SCH ×2 (04:30→10:15)
[2018-05-01 06:44] LABS: #Monocytes 0.8 thou/uL (0.11-0.59); #Neutrophils 5.5 thou/uL (1.40-6.50); %Basophils 0.4 % (0.0-1.0); %Eosinophils 0.5 % (0.0-10.0); %Lymphocytes 13.9 % (21.0-51.0); %Neutrophils 74.1 % (42.0-75.0); Mean Corpuscular HGB CONC 33.3 g/dL (32.0-36.0); Mean Corpuscular Hemoglobin 28.8 pg (27.0-31.0); Mean Corpuscular Volume 86.6 fL (78.0-98.0); Mean Platelet Volume 8.2 fL (7.4-10.4); Platelet Count 161 thou/uL (130-400); RBC Distribution Width 11.6 % (11.5-14.5); Red Blood Cell (RBC) Count 4.52 mill/uL (4.70-6.10); White Blood Cell (WBC) Count 7.4 thou/uL (4.8-10.8)
[2018-05-01 07:02] LABS: Anion Gap 12 mmol/L (10-20); BUN (Urea Nitrogen) 8 mg/dL (8.9-20.6); Calc. Creatinine Clearance 137 mL/min (70-130); Calcium 9.3 mg/dL (7.8-10.44); Carbon Dioxide 24 mmol/L (22-29); Chloride 106 mmol/L (98-107); Estimated GFR-MDRD Greater than 90; Glucose 90 mg/dL (70-105); Potassium 3.3 mmol/L (3.5-5.1); Sodium 139 mmol/L (136-145)
[2018-05-01] MEDS ORDERED: Potassium Chloride 20 MEQ TAB PO SCH (10:00)
[2018-05-01] MEDS: Polyethylene Glycol 3350 17 GM Packet PO SCH (10:12)
[2018-05-01] MEDS: Famotidine 20 MG TAB PO SCH ×2 (10:13→21:58)
[2018-05-01] MEDS: Acetaminophen 325 MG TAB PO SCH ×3 (10:13→21:59)
[2018-05-01] MEDS: Heparin 5,000 UNITS/ML VIAL SC SCH ×2 (10:13→21:57)
[2018-05-01] MEDS: cefTRIAXone\\ROCEPHIN 1 GM in Sodium Chloride 0.9% 100 ML IVPB SCH (12:44)
--- NOTE | 2018-05-01 17:08 | PRG ---
DATE OF SERVICE: 05/01/2018 SUBJECTIVE: Still having quite a bit of pain in the right lower extremity, tenderness, little bit of cough, sometimes abdominal pain. OBJECTIVE: VITAL SIGNS: T-max 100.4, is now 98.7; BP 126/54. GENERAL: Awake, alert, oriented. LUNGS: Clear. HEART: S1, S2. Regular rate. EXTREMITIES: Still with erythema in the focal area in the right lower extremity. Little area of lymphangitis noted. LABORATORY DATA: White cell count 7.4, hemoglobin 13, platelets 161. Microbiology with negative blood culture thus far. ASSESSMENT: Recent appendectomy for management of acute appendicitis, now with cellulitis right leg. The patient to continue on Rocephin. Job ID: [id number]
[2018-05-01] MEDS: Potassium Chloride 20 MEQ TAB PO SCH (17:43)
--- NOTE | 2018-05-01 21:03 | PDOC.PN ---
- Subjective Encounter Start Date: 05/01/18 Encounter Start Time: 15:00 Patient seen and examined for RLE Cellulitis with syncope. RLE pain +. Had several episodes of pain induced syncope per RN. No othercomplaints. No overnight events - Objective Resuscitation Status - Order Detail: 04/30/18 01:42 Resuscitation Status Routine Resuscitation Status: FULL: Full Resuscitation Discussed with: patient MAR Reviewed: Yes Vital Signs & Weight: Vital Signs (12 hours) Temp 05/01/18 19:09 98.9 F 05/01/18 15:00 98.7 F 05/01/18 10:40 100.4 F H Weight Weight 164 lb 3.91 oz Most Recent Monitor Data Heart Rate from ECG 76 NIBP 118/63 NIBP BP-Mean 81 Respiration from ECG 19 SpO2 96 I&O: 04/30/18 05/01/18 05/02/18 06:59 06:59 06:59 Intake Total 300 1300 Output Total 300 100 Balance 0 1200 Result Diagrams: 05/01/18 05:56 05/01/18 05:56 EKG Reviewed by me: Yes (Tele SR) Phys Exam - Physical Examination Constitutional: NAD Respiratory: no wheezing, no rhonchi Cardiovascular: RRR, no rub Gastrointestinal: soft, non-tender, positive bowel sounds Musculoskeletal: edema present RLE erythema with Rt groin pain Neurological: moves all 4 limbs Dx/Plan - Plan DVT proph w/SCDs 1. Sepsis due to RLE Cellulitis 2. Rt groin pain due to lymphadenopathy sec to #1 3. Syncope due to pain 4. Recent appendectomy 5. Hypokalemia PLAN: Cont Ceftriaxone Replace Potassium Cont current meds as below Cont IMCU monitoring due to syncopal episodes earlier today Pain control Review of Systems - Review of Systems Respiratory: negative: Cough, Dry, Shortness of Breath, Hemoptysis, SOB with Excertion, Pleuritic Pain, Sputum, Wheezing Cardiovascular: negative: chest pain, palpitations, orthopnea, paroxysmal nocturnal dyspnea, edema, light headedness, other Gastrointestinal: negative: Nausea, Vomiting, Abdominal Pain, Diarrhea, Constipation, Melena, Hematochezia, Other - Medications/Allergies Allergies/Adverse Reactions: Allergies Allergy/AdvReac Type Severity Reaction Status Date / Time No Known Allergies Allergy Verified 04/30/18 01:08 Medications: Current Medications Acetaminophen (Tylenol) 650 mg PO Q4H PRN PRN Reason: Headache/Fever/Mild Pain (1-3) Acetaminophen (Tylenol) 650 mg PO TID [facility] Last Admin: 05/01/18 15:21 Dose: 650 mg Docusate Sodium (Colace) 100 mg PO BID [facility] Last Admin: 05/01/18 10:14 Dose: 100 mg Famotidine (Pepcid) 20 mg PO BID [facility] Last Admin: 05/01/18 10:13 Dose: 20 mg Heparin Sodium (Porcine) (Heparin) 5,000 units SC BID [facility] Last Admin: 05/01/18 10:13 Dose: 5,000 units Ceftriaxone Sodium 1 gm/ (Sodium Chloride) 100 mls @ 200 mls/hr IVPB Q24HR [facility] Last Admin: 05/01/18 12:44 Dose: 100 mls Ketorolac Tromethamine (Toradol) 15 mg IVP 0300,0900,1500,2100 [facility] Stop: 05/05/18 15:01 Last Admin: 05/01/18 15:20 Dose: 15 mg Morphine Sulfate (Morphine) 2 mg SLOW IVP Q4H PRN PRN Reason: Moderate to Severe Pain (6-10) Last Admin: 05/01/18 12:45 Dose: 2 mg Ondansetron HCl (Zofran Odt) 4 mg PO Q6H PRN PRN Reason: Nausea/Vomiting Ondansetron HCl (Zofran) 4 mg IVP Q6H PRN PRN Reason: Nausea/Vomiting Last Admin: 04/30/18 22:49 Dose: 4 mg Polyethylene Glycol (Miralax) 17 gm PO DAILY [facility] Last Admin: 05/01/18 10:12 Dose: 17 gm Potassium Chloride (K-Dur) 20 meq PO BID[facility] Stop: 05/02/18 08:01 Last Admin: 05/01/18 17:43 Dose: 20 meq Sodium Chloride (Flush - Normal Saline) 10 ml IVF Q12HR PRN PRN Reason: Saline Flush Last Admin: 05/01/18 10:14 Dose: 10 ml Zolpidem Tartrate (Ambien) 5 mg PO HSPRN PRN PRN Reason: Insomnia Last Admin: 05/01/18 00:11 Dose: 5 mg
[2018-05-02 04:59] LABS: #Eosinphils 0.1 thou/uL (0.0-0.7); #Lymphocytes 1.2 thou/uL (1.20-3.40); #Monocytes 0.8 thou/uL (0.11-0.59); #Neutrophils 4.2 thou/uL (1.40-6.50); %Basophils 0.4 % (0.0-1.0); %Lymphocytes 18.6 % (21.0-51.0); %Monocytes 12.4 % (0.0-10.0); %Neutrophils 67.6 % (42.0-75.0); Hemoglobin 12.9 g/dL (14.0-18.0); Mean Corpuscular HGB CONC 33.1 g/dL (32.0-36.0); Mean Corpuscular Hemoglobin 28.9 pg (27.0-31.0); Mean Corpuscular Volume 87.2 fL (78.0-98.0); Platelet Count 187 thou/uL (130-400); RBC Distribution Width 11.4 % (11.5-14.5); Red Blood Cell (RBC) Count 4.47 mill/uL (4.70-6.10); White Blood Cell (WBC) Count 6.2 thou/uL (4.8-10.8)
[2018-05-02 05:21] LABS: Anion Gap 11 mmol/L (10-20); BUN (Urea Nitrogen) 8 mg/dL (8.9-20.6); Calc. Creatinine Clearance 133 mL/min (70-130); Calcium 9.5 mg/dL (7.8-10.44); Carbon Dioxide 26 mmol/L (22-29); Chloride 105 mmol/L (98-107); Estimated GFR-MDRD Greater than 90; Glucose 105 mg/dL (70-105); Potassium 3.7 mmol/L (3.5-5.1); Sodium 138 mmol/L (136-145)
[2018-05-02] MEDS: Ketorolac Tromethamine 30 MG/ML VIAL IVP SCH ×2 (08:33→09:00)
[2018-05-02] MEDS: Heparin 5,000 UNITS/ML VIAL SC SCH ×2 (08:59→20:36)
[2018-05-02] MEDS: Potassium Chloride 20 MEQ TAB PO SCH (08:59)
[2018-05-02] MEDS: Polyethylene Glycol 3350 17 GM Packet PO SCH (08:59)
[2018-05-02] MEDS: Famotidine 20 MG TAB PO SCH ×2 (08:59→20:37)
[2018-05-02] MEDS: Docusate 100 MG CAP PO SCH (08:59)
[2018-05-02] MEDS: Acetaminophen 325 MG TAB PO SCH ×3 (08:59→20:37)
[2018-05-02] MEDS ORDERED: Vancomycin HCl 1 GM in Premix Bag 1 BAG IVPB SCH (10:30)
[2018-05-02] MEDS: Morphine 4 MG/ML VIAL SLOW IVP PRN ×2 (12:17→19:23)
[2018-05-02] MEDS: cefTRIAXone\\ROCEPHIN 1 GM in Sodium Chloride 0.9% 100 ML IVPB SCH (12:23)
[2018-05-02] MEDS: Vancomycin HCl 1.5 GM in Sodium Chloride 0.9% 250 ML 300 ML IVPB SCH ×2 (13:29→20:38)
[2018-05-02] MEDS: Ondansetron PF 4 MG/2 ML Vial IVP PRN (15:38)
[2018-05-02] MEDS: Ibuprofen 200 MG TAB PO SCH ×2 (17:36→21:53)
--- NOTE | 2018-05-02 22:53 | PDOC.PN ---
- Subjective Encounter Start Date: 05/02/18 Encounter Start Time: 10:30 Patient seen and examined for Sepsis. Had 1 episode of syncope during pain episode. RLE pain/swelling. No overnight events - Objective Resuscitation Status - Order Detail: 04/30/18 01:42 Resuscitation Status Routine Resuscitation Status: FULL: Full Resuscitation Discussed with: patient MAR Reviewed: Yes Vital Signs & Weight: Vital Signs (12 hours) Temp 05/02/18 19:52 98.0 F 05/02/18 15:14 98.4 F 05/02/18 11:14 97.0 F L Weight Weight 164 lb 3.91 oz Most Recent Monitor Data Heart Rate from ECG 73 NIBP 129/88 NIBP BP-Mean 101 Respiration from ECG 24 SpO2 100 I&O: 05/01/18 05/02/18 05/03/18 06:59 06:59 06:59 Intake Total 1300 480 385 Output Total 100 Balance 1200 480 385 Result Diagrams: 05/02/18 04:15 05/02/18 04:15 EKG Reviewed by me: Yes (Tele SR) Phys Exam - Physical Examination Constitutional: NAD Respiratory: no wheezing, no rhonchi Cardiovascular: RRR, no rub Gastrointestinal: soft, positive bowel sounds Musculoskeletal: edema present RLE swelling/erythema/tenderness Neurological: moves all 4 limbs Dx/Plan - Plan DVT proph w/SCDs 1. Sepsis due to RLE Cellulitis 2. Rt groin pain due to lymphadenopathy sec to #1 3. Syncope due to pain 4. Recent appendectomy 5. Hypokalemia PLAN: Add IV Vancomycin Cont Ceftriaxone Cont other meds as below DC Toradol Review of Systems - Review of Systems Respiratory: negative: Cough, Dry, Shortness of Breath, Hemoptysis, SOB with Excertion, Pleuritic Pain, Sputum, Wheezing Cardiovascular: negative: chest pain, palpitations, orthopnea, paroxysmal nocturnal dyspnea, edema, light headedness, other - Medications/Allergies Allergies/Adverse Reactions: Allergies Allergy/AdvReac Type Severity Reaction Status Date / Time No Known Allergies Allergy Verified 04/30/18 01:08 Medications: Current Medications Acetaminophen (Tylenol) 650 mg PO Q4H PRN PRN Reason: Headache/Fever/Mild Pain (1-3) Acetaminophen (Tylenol) 650 mg PO TID [facility] Last Admin: 05/02/18 20:37 Dose: 650 mg Famotidine (Pepcid) 20 mg PO BID [facility] Last Admin: 05/02/18 20:37 Dose: 20 mg Heparin Sodium (Porcine) (Heparin) 5,000 units SC BID [facility] Last Admin: 05/02/18 20:36 Dose: 5,000 units Ceftriaxone Sodium 1 gm/ (Sodium Chloride) 100 mls @ 200 mls/hr IVPB Q24HR [facility] Last Admin: 05/02/18 12:23 Dose: 100 mls Vancomycin HCl 1.5 gm/ Sodium (Chloride) 300 mls @ 200 mls/hr IVPB 0400,1200, 2000 [facility] Last Admin: 05/02/18 20:38 Dose: 300 mls Ibuprofen (Motrin) 400 mg PO TID [facility] Last Admin: 05/02/18 21:53 Dose: 400 mg Miscellaneous Medication (Pharmacy To Dose) 1 each IVPB .VANCOMYCIN [facility] Morphine Sulfate (Morphine) 2 mg SLOW IVP Q4H PRN PRN Reason: Moderate to Severe Pain (6-10) Last Admin: 05/02/18 19:23 Dose: 2 mg Ondansetron HCl (Zofran Odt) 4 mg PO Q6H PRN PRN Reason: Nausea/Vomiting Ondansetron HCl (Zofran) 4 mg IVP Q6H PRN PRN Reason: Nausea/Vomiting Last Admin: 05/02/18 15:38 Dose: 4 mg Saccharomyces Boulardii (Florastor) 250 mg PO DAILY [facility] Sodium Chloride (Flush - Normal Saline) 10 ml IVF Q12HR PRN PRN Reason: Saline Flush Last Admin: 05/02/18 12:27 Dose: 10 ml Zolpidem Tartrate (Ambien) 5 mg PO HSPRN PRN PRN Reason: Insomnia Last Admin: 05/01/18 23:53 Dose: 5 mg
[2018-05-03 04:45] LABS: #Basophils 0.1 thou/uL (0.0-0.2); #Eosinphils 0.1 thou/uL (0.0-0.7); #Lymphocytes 1.9 thou/uL (1.20-3.40); #Monocytes 0.8 thou/uL (0.11-0.59); #Neutrophils 4.5 thou/uL (1.40-6.50); %Basophils 0.8 % (0.0-1.0); %Lymphocytes 25.2 % (21.0-51.0); %Monocytes 11.4 % (0.0-10.0); %Neutrophils 61.6 % (42.0-75.0); Hemoglobin 13.5 g/dL (14.0-18.0); Mean Corpuscular HGB CONC 33.9 g/dL (32.0-36.0); Mean Corpuscular Hemoglobin 29.8 pg (27.0-31.0); Mean Corpuscular Volume 87.9 fL (78.0-98.0); Mean Platelet Volume 7.5 fL (7.4-10.4); Platelet Count 210 thou/uL (130-400); RBC Distribution Width 11.5 % (11.5-14.5); Red Blood Cell (RBC) Count 4.54 mill/uL (4.70-6.10); White Blood Cell (WBC) Count 7.3 thou/uL (4.8-10.8)
[2018-05-03] MEDS: Vancomycin HCl 1.5 GM in Sodium Chloride 0.9% 250 ML 300 ML IVPB SCH ×3 (04:47→20:18)
[2018-05-03 05:06] LABS: Anion Gap 14 mmol/L (10-20); BUN (Urea Nitrogen) 11 mg/dL (8.9-20.6); Calc. Creatinine Clearance 125 mL/min (70-130); Calcium 9.9 mg/dL (7.8-10.44); Carbon Dioxide 26 mmol/L (22-29); Chloride 106 mmol/L (98-107); Estimated GFR-MDRD Greater than 90; Glucose 82 mg/dL (70-105); Sodium 142 mmol/L (136-145)
[2018-05-03] MEDS: Famotidine 20 MG TAB PO SCH ×2 (08:57→20:21)
[2018-05-03] MEDS: Acetaminophen 325 MG TAB PO SCH ×3 (08:57→20:20)
[2018-05-03] MEDS: Saccharomyces boulardii 250 MG CAP PO SCH (08:57)
[2018-05-03] MEDS: Ibuprofen 200 MG TAB PO SCH ×3 (08:58→22:13)
[2018-05-03] MEDS: Heparin 5,000 UNITS/ML VIAL SC SCH (08:58)
[2018-05-03] MEDS: Ondansetron ODT 4 MG TAB PO PRN ×2 (12:33→22:11)
[2018-05-03 12:34] LABS: Vancomycin, Trough 14.6 ug/mL
[2018-05-03] MEDS: cefTRIAXone\\ROCEPHIN 1 GM in Sodium Chloride 0.9% 100 ML IVPB SCH (12:36)
--- NOTE | 2018-05-03 16:29 | PDOC.PN ---
- Subjective Encounter Start Date: 05/03/18 Encounter Start Time: 08:30 Patient seen and examined for RLE Cellulitis. Feels better. RLE pain improving. No new complaints. No overnight events - Objective Resuscitation Status - Order Detail: 04/30/18 01:42 Resuscitation Status Routine Resuscitation Status: FULL: Full Resuscitation Discussed with: patient MAR Reviewed: Yes Vital Signs & Weight: Vital Signs (12 hours) Temp Pulse Ox 05/03/18 15:23 98.5 F 05/03/18 11:12 98.3 F 05/03/18 07:58 100 05/03/18 07:10 97.5 F L Weight Weight 164 lb 3.91 oz Most Recent Monitor Data Heart Rate from ECG 69 NIBP 131/63 NIBP BP-Mean 85 Respiration from ECG 31 SpO2 95 I&O: 05/02/18 05/03/18 05/04/18 06:59 06:59 06:59 Intake Total 480 1105 Balance 480 1105 Result Diagrams: 05/03/18 04:10 05/03/18 04:10 EKG Reviewed by me: Yes (Tele SR) Phys Exam - Physical Examination Constitutional: NAD Respiratory: no wheezing, no rhonchi Cardiovascular: RRR, no rub Gastrointestinal: soft, non-tender, positive bowel sounds Musculoskeletal: edema present RLE erythema - slowly improving Neurological: moves all 4 limbs Dx/Plan - Plan DVT proph w/SCDs 1. Sepsis due to RLE Cellulitis - improving 2. Rt groin pain due to lymphadenopathy sec to #1 3. Syncope due to pain 4. Recent appendectomy 5. Hypokalemia - replaced PLAN: Cont IV Ceftriaxone DC Vancomycin later today Cont other meds as below DC in AM if stable Case d/w Dr Mercado Review of Systems - Review of Systems Respiratory: negative: Cough, Dry, Shortness of Breath, Hemoptysis, SOB with Excertion, Pleuritic Pain, Sputum, Wheezing Cardiovascular: negative: chest pain, palpitations, orthopnea, paroxysmal nocturnal dyspnea, edema, light headedness, other - Medications/Allergies Allergies/Adverse Reactions: Allergies Allergy/AdvReac Type Severity Reaction Status Date / Time No Known Allergies Allergy Verified 04/30/18 01:08 Medications: Current Medications Acetaminophen (Tylenol) 650 mg PO Q4H PRN PRN Reason: Headache/Fever/Mild Pain (1-3) Acetaminophen (Tylenol) 650 mg PO TID [facility] Last Admin: 05/03/18 14:36 Dose: 650 mg Famotidine (Pepcid) 20 mg PO BID [facility] Last Admin: 05/03/18 08:57 Dose: 20 mg Ceftriaxone Sodium 1 gm/ (Sodium Chloride) 100 mls @ 200 mls/hr IVPB Q24HR [facility] Last Admin: 05/03/18 12:36 Dose: 100 mls Vancomycin HCl 1.5 gm/ Sodium (Chloride) 300 mls @ 200 mls/hr IVPB 0400,1200, 2000 [facility] Stop: 05/03/18 23:59 Last Admin: 05/03/18 12:35 Dose: 300 mls Ibuprofen (Motrin) 400 mg PO TID [facility] Last Admin: 05/03/18 14:36 Dose: 400 mg Miscellaneous Medication (Pharmacy To Dose) 1 each IVPB .VANCOMYCIN [facility] Morphine Sulfate (Morphine) 2 mg SLOW IVP Q4H PRN PRN Reason: Moderate to Severe Pain (6-10) Last Admin: 05/02/18 19:23 Dose: 2 mg Ondansetron HCl (Zofran Odt) 4 mg PO Q6H PRN PRN Reason: Nausea/Vomiting Last Admin: 05/03/18 12:33 Dose: 4 mg Ondansetron HCl (Zofran) 4 mg IVP Q6H PRN PRN Reason: Nausea/Vomiting Last Admin: 05/02/18 15:38 Dose: 4 mg Saccharomyces Boulardii (Florastor) 250 mg PO DAILY [facility] Last Admin: 05/03/18 08:57 Dose: 250 mg Sodium Chloride (Flush - Normal Saline) 10 ml IVF Q12HR PRN PRN Reason: Saline Flush Last Admin: 05/02/18 12:27 Dose: 10 ml Zolpidem Tartrate (Ambien) 5 mg PO HSPRN PRN PRN Reason: Insomnia Last Admin: 05/01/18 23:53 Dose: 5 mg
[2018-05-03] MEDS: Morphine 4 MG/ML VIAL SLOW IVP PRN (17:33)
[2018-05-03] MEDS ORDERED: Promethazine HCl 25 MG/ML VIAL IM/IV PRN (23:37)
[2018-05-04] MEDS: Morphine 4 MG/ML VIAL SLOW IVP PRN (00:53)
[2018-05-04] MEDS: Ibuprofen 200 MG TAB PO SCH (09:59)
[2018-05-04] MEDS: Famotidine 20 MG TAB PO SCH (09:59)
[2018-05-04] MEDS: Saccharomyces boulardii 250 MG CAP PO SCH (10:01)
[2018-05-04] MEDS: Acetaminophen 325 MG TAB PO SCH ×3 (10:02→21:21)
[2018-05-04] MEDS: traMADol HCl 50 MG TAB PO PRN ×2 (10:53→19:00)
[2018-05-04] MEDS: cefTRIAXone\\ROCEPHIN 1 GM in Sodium Chloride 0.9% 100 ML IVPB SCH (12:45)
[2018-05-04] MEDS ORDERED: Fentanyl 100 MCG/2 ML VIAL ONE (15:03)
[2018-05-04] MEDS: Ondansetron ODT 4 MG TAB PO PRN (17:02)
--- NOTE | 2018-05-04 18:34 | PDOC.PN ---
- Subjective Encounter Start Date: 05/04/18 Encounter Start Time: 08:30 Patient seen and examined for RLE Celluitis. Poor appetite. Nausea +. Required Phenergan last night. No new complaints. No overnight events - Objective Resuscitation Status - Order Detail: 04/30/18 01:42 Resuscitation Status Routine Resuscitation Status: FULL: Full Resuscitation Discussed with: patient NAILA Reviewed: Yes Vital Signs & Weight: Vital Signs (12 hours) Temp Pulse Resp BP Pulse Ox 05/04/18 08:00 98.3 F 82 16 102/53 L 99 Weight Weight 164 lb 3.91 oz Most Recent Monitor Data Heart Rate from ECG 69 NIBP 131/63 NIBP BP-Mean 85 Respiration from ECG 31 SpO2 95 I&O: 05/03/18 05/04/18 05/05/18 06:59 06:59 06:59 Intake Total 1105 300 Balance 1105 300 Result Diagrams: 05/03/18 04:10 05/03/18 04:10 Phys Exam - Physical Examination Constitutional: NAD Respiratory: no wheezing, no rhonchi Cardiovascular: RRR, no rub Gastrointestinal: soft, positive bowel sounds Musculoskeletal: edema present (Erythema improving) Dx/Plan - Plan DVT proph w/SCDs 1. Sepsis due to RLE Cellulitis - improving 2. Rt groin pain due to lymphadenopathy sec to #1 3. Syncope due to pain 4. Recent appendectomy 5. Hypokalemia - replaced 6. Nausea with poor appetite PLAN: Cont IV Ceftriaxone DC Phenergan Cont Zofran PRN Add IVF later if unable to maintain adequate fluid intake Cont other meds as below DC in AM if stable Review of Systems - Review of Systems Respiratory: negative: Cough, Dry, Shortness of Breath, Hemoptysis, SOB with Excertion, Pleuritic Pain, Sputum, Wheezing Cardiovascular: negative: chest pain, palpitations, orthopnea, paroxysmal nocturnal dyspnea, edema, light headedness, other - Medications/Allergies Allergies/Adverse Reactions: Allergies Allergy/AdvReac Type Severity Reaction Status Date / Time No Known Allergies Allergy Verified 04/30/18 01:08 Medications: Current Medications Acetaminophen (Tylenol) 650 mg PO Q4H PRN PRN Reason: Headache/Fever/Mild Pain (1-3) Acetaminophen (Tylenol) 650 mg PO TID [facility] Last Admin: 05/04/18 16:47 Dose: Not Given Ceftriaxone Sodium 1 gm/ (Sodium Chloride) 100 mls @ 200 mls/hr IVPB Q24HR [facility] Last Admin: 05/04/18 12:45 Dose: 100 mls Miscellaneous Medication (Pharmacy To Dose) 1 each IVPB .VANCOMYCIN [facility] Ondansetron HCl (Zofran Odt) 4 mg PO Q6H PRN PRN Reason: Nausea/Vomiting Last Admin: 05/04/18 17:02 Dose: 4 mg Ondansetron HCl (Zofran) 4 mg IVP Q6H PRN PRN Reason: Nausea/Vomiting Last Admin: 05/02/18 15:38 Dose: 4 mg Pantoprazole Sodium (Protonix) 40 mg PO DAILY [facility] Last Admin: 05/04/18 10:02 Dose: 40 mg Saccharomyces Boulardii (Florastor) 250 mg PO DAILY [facility] Last Admin: 05/04/18 10:01 Dose: 250 mg Sodium Chloride (Flush - Normal Saline) 10 ml IVF Q12HR PRN PRN Reason: Saline Flush Last Admin: 05/04/18 00:56 Dose: 10 ml Tramadol HCl (Ultram) 50 mg PO Q6H PRN PRN Reason: Moderate Pain (4-6) Last Admin: 05/04/18 10:53 Dose: 50 mg Zolpidem Tartrate (Ambien) 5 mg PO HSPRN PRN PRN Reason: Insomnia Last Admin: 05/01/18 23:53 Dose: 5 mg
[2018-05-05] MEDS: Acetaminophen 325 MG TAB PO SCH (08:49)
[2018-05-05] MEDS: Saccharomyces boulardii 250 MG CAP PO SCH (08:49)
[2018-05-05 09:10] VITALS: BP 121/65; TEMP 98.1
--- NOTE | 2018-05-05 11:12 | DIS ---
DATE OF ADMISSION: 04/30/2018 DATE OF DISCHARGE: 05/05/2018 DISCHARGE DISPOSITION: Home. FOLLOWUP: 1. Follow up with [email or web address] after 1 week. 2. Follow up with Dr. Mercado after 10 days. ALLERGIES: NO KNOWN DRUG ALLERGIES. DISCHARGE MEDICATIONS: 1. Keflex 500 mg 4 times daily for next 10 days. 2. The patient will need penicillin VK suppressive therapy for 1 year after this. The patient was advised to follow up with Dr. Mercado. BRIEF HOSPITAL COURSE: The patient is a 23-year-old male presented to the hospital with right groin pain with significant right lower extremity swelling. Please refer to the history and physical for further details. The patient was admitted to the medical floor with a diagnosis of right lower extremity cellulitis. CT scan of the abdomen and pelvis in the emergency room showed right superficial inguinal lymphadenopathy. He was started on broad-spectrum antibiotics. Due to significant pain, he had transient hyperventilation followed by unresponsiveness. He was transferred to the Intermediate Care Unit for close monitoring. The patient did not have any new episode once the pain was better controlled. He was seen by Infectious Disease, Dr. Mercado. Dr. Mercado recommended IV ceftriaxone, followed by Keflex at discharge. Dr. Mercado also recommended penicillin VK prophylaxis for 1 year after completing Keflex. He also had some electrolyte abnormalities including hyponatremia and hypokalemia, which has been replaced. His WBC count over the last 24 hours has been 7.3 without significant neutrophilia. He appears stable for discharge. FINAL DIAGNOSES: 1. Sepsis secondary to right lower extremity cellulitis. 2. Right groin pain secondary to lymphadenopathy. 3. Transient unresponsiveness during the painful episodes with hyperventilation, probably secondary to pain. Telemetry monitoring did not reveal significant arrhythmias. 4. Recent appendectomy. 5. Hypokalemia. 6. Hypomagnesemia. 7. Nausea with poor appetite, improved. PLAN: Plan of care was discussed with the patient and he stated understanding. Job ID: [id number]
== END 2018-05-05 11:50 | disposition home or self-care (01) | DRG 872 ==
LOC: ERS 18:59 → T4-B 23:58 → CCU 04-30 05:57 → OBSVTOIN 04-30 09:39 → IMCU/EMU 04-30 16:27 → ONC 05-03 17:20
PROVIDERS: ADMIT Internal Medicine; ATTEND Internal Medicine
DX: A41.9 Sepsis, unspecified organism (principal); L03.115 Cellulitis of right lower limb; E87.1 Hypo-osmolality and hyponatremia; E83.42 Hypomagnesemia; E87.6 Hypokalemia; R06.4 Hyperventilation; R59.0 Localized enlarged lymph nodes; R11.0 Nausea; Z90.49 Acquired absence of other specified parts of digestive tract
CPT/HCPCS: 36415; 74177; 80048; 80053; 80202; 83690; 83735; 85025; 87040; 87389; 87804; 90471; 90686; 96361; 96365; 96375; G0008; J0295; J0696; J1644; J1885; J2060; J2270; J2405; J2550; J3010; J3370; J7050; Q0162; Q9966

== ENCOUNTER 2018-08-25 13:58 | Emergency (ER) | payer SELFPAY ==
[2018-08-25] MEDS ORDERED: Cyclobenzaprine 10 MG TAB ONE (15:18)
--- NOTE | 2018-08-25 16:10 | RAD ---
THORACIC SPINE TWO VIEW 08/25/18 HISTORY: Pain. COMPARISON: None. FINDINGS: No thoracic spine compression deformity. Vertebral body heights and disc spaces are maintained. The v isualized posterior ribs are intact. IMPRESSION: No acute fracture of the thoracic spine. POS: HOME
--- NOTE | 2018-08-25 16:27 | RAD ---
LUMBAR SPINE 3 VIEWS: Date: 08/25/18 HISTORY: Pain. COMPARISON: CT from 04/29/18. FINDINGS: Five non-rib bearing lumbar-type vertebrae. No fracture. No malalignment. No listhesis. Posterior elements are intact. IMPRESSION: No acute osseous abnormality. POS: HOME
== END 2018-08-25 16:21 | disposition home or self-care (01) ==
LOC: ERS 13:58
DX: M54.5 Low back pain (principal)
CPT/HCPCS: 72072; 72100

== ENCOUNTER 2019-02-01 05:03 | Emergency (ER) | payer SELFPAY ==
[2019-02-01] MEDS ORDERED: Ketorolac Tromethamine 30 MG/ML VIAL ONE (05:30)
[2019-02-01 05:55] LABS: #Eosinphils 0.1 thou/uL (0.0-0.7); #Monocytes 0.6 thou/uL (0.11-0.59); #Neutrophils 3.5 thou/uL (1.40-6.50); %Basophils 0.6 % (0.0-1.0); %Eosinophils 2.2 % (0.0-10.0); %Lymphocytes 31.5 % (21.0-51.0); %Monocytes 9.8 % (0.0-10.0); %Neutrophils 55.9 % (42.0-75.0); Hemoglobin 14.5 g/dL (14.0-18.0); Mean Corpuscular HGB CONC 32.9 g/dL (32.0-36.0); Mean Corpuscular Hemoglobin 28.6 pg (27.0-31.0); Mean Platelet Volume 7.5 fL (7.4-10.4); Platelet Count 242 thou/uL (130-400); RBC Distribution Width 11.2 % (11.5-14.5); Red Blood Cell (RBC) Count 5.06 mill/uL (4.70-6.10); White Blood Cell (WBC) Count 6.3 thou/uL (4.8-10.8)
[2019-02-01 06:17] LABS: ALT (SGPT) 11 U/L (8-55); AST (SGOT) 17 U/L (5-34); Albumin 4.6 g/dL (3.5-5.0); Alkaline Phosphatase 88 U/L (40-110); Anion Gap 11 mmol/L (10-20); BUN (Urea Nitrogen) 13 mg/dL (8.9-20.6); Bilirubin, Total 0.4 mg/dL (0.2-1.2); CK (CPK) 198 U/L (30-200); Calc. Creatinine Clearance 0 mL/min (70-130); Calcium 9.7 mg/dL (7.8-10.44); Carbon Dioxide 28 mmol/L (22-29); Chloride 104 mmol/L (98-107); Estimated GFR-MDRD Greater than 90; Globulin 3.1 g/dL (2.4-3.5); Glucose 92 mg/dL (70-105); Potassium 4.2 mmol/L (3.5-5.1); Protein, Total 7.7 g/dL (6.0-8.3); Sodium 139 mmol/L (136-145)
== END 2019-02-01 06:30 | disposition home or self-care (01) ==
LOC: ERS 05:03
DX: M79.661 Pain in right lower leg (principal)
CPT/HCPCS: 36415; 80053; 82550; 85025; 96372; 99283; J1885

== ENCOUNTER 2019-04-24 08:56 | Inpatient (IN) | payer SELFPAY ==
[2019-04-24] MEDS ORDERED: Ondansetron PF 4 MG/2 ML Vial ONE (09:03)
[2019-04-24] MEDS ORDERED: Lorazepam 2 MG/ML VIAL ONE (09:19)
[2019-04-24 09:43] LABS: ALT (SGPT) 24 U/L (8-55); AST (SGOT) 45 U/L (5-34); Albumin 5.6 g/dL (3.5-5.0); Alkaline Phosphatase 112 U/L (40-110); Anion Gap 27 mmol/L (10-20); BUN (Urea Nitrogen) 23 mg/dL (8.9-20.6); Band 4 % (5-11); Bilirubin, Total 0.5 mg/dL (0.2-1.2); Calc. Creatinine Clearance 0 mL/min (70-130); Calcium 10.1 mg/dL (7.8-10.44); Carbon Dioxide 13 mmol/L (22-29); Chloride 105 mmol/L (98-107); Eosinophils 1 % (0-10); Estimated GFR-MDRD 89; Globulin 3.6 g/dL (2.4-3.5); Glucose 62 mg/dL (70-105); Hemoglobin 16.1 g/dL (14.0-18.0); Lipase 39 U/L (8-78); Lymphocytes 13 % (21-51); MDiff Complete? YES; Mean Corpuscular HGB CONC 34.2 g/dL (32.0-36.0); Mean Corpuscular Hemoglobin 29.7 pg (27.0-31.0); Mean Corpuscular Volume 86.8 fL (78.0-98.0); Mean Platelet Volume 8.8 fL (7.4-10.4); Monocytes 7 % (0-10); Neutrophil 75 % (42-75); Platelet Count 251 thou/uL (130-400); Potassium 3.8 mmol/L (3.5-5.1); Protein, Total 9.2 g/dL (6.0-8.3); RBC Distribution Width 12.3 % (11.5-14.5); Red Blood Cell (RBC) Count 5.43 mill/uL (4.70-6.10); Sodium 141 mmol/L (136-145); White Blood Cell (WBC) Count 23.5 thou/uL (4.8-10.8)
[2019-04-24] MEDS ORDERED: Morphine 4 MG/ML VIAL ONE (10:04)
[2019-04-24] MEDS ORDERED: Ketorolac Tromethamine 30 MG/ML VIAL ONE (10:04)
--- NOTE | 2019-04-24 11:08 | CT ---
CT abdomen and pelvis with IV contrast HISTORY: Right lower quadrant pain. Fever. COMPARISON: 02/27/2019. FINDINGS: The lung bases are clear. The liver, spleen, kidneys, adrenal glands, and pancreas have a n ormal CT appearance. Urinary bladder is unremarkable. Appendix is surgically absent. There is subtle circumferential wall thickening involving the right co oksana with very subtle stranding in the adjacent fat. No free air or free fluid. Nonenlarged, nonspecific lymph nodes are scattered about the retroperitoneum. Bone island incidentally noted at the right acetabulum, stable. IMPRESSION: Subtle inflammatory appearance of the right colon. Cause is not evident. Consider infecti on and inflammatory bowel disease. Early portal venous hypertension can also cause this appearance.
[2019-04-24] MEDS ORDERED: metroNIDAZOLE 500 MG/100 ML BAG ONE (11:43)
[2019-04-24 12:44] LABS: Bilirubin Negative (Negative); Blood, Urine Negative (Negative); Clarity Clear (Clear); Glucose, Urine (Dipstick) Negative (Negative); Leukocyte Negative (Negative); Nitrite Negative (Negative); Protein, Urine (Dipstick) Negative (Neg-Trace); Urobilinogen 0.2 mg/dL (Less than 2)
[2019-04-24 14:00] VITALS: BMI 25.0
[2019-04-24] MEDS ORDERED: FLU VACC QS2019-20(6MOS UP)/PF 60 MCG/0.5 ML SYRINGE IM ONE (14:15)
[2019-04-24] MEDS ORDERED: Iopamidol 370 76% 100 ML VIAL ONE (14:34)
[2019-04-24] MEDS ORDERED: Sodium Chloride 0.9% 1,000 ML IV SCH (14:47)
[2019-04-24] MEDS ORDERED: Morphine 4 MG/ML VIAL SLOW IVP PRN (14:47)
[2019-04-24] MEDS ORDERED: Ondansetron ODT 4 MG TAB SL PRN (14:47)
[2019-04-24] MEDS ORDERED: Ondansetron PF 4 MG/2 ML Vial IVP PRN ×2 (14:47→14:53)
[2019-04-24] MEDS ORDERED: Ondansetron ODT 4 MG TAB PO PRN (14:53)
[2019-04-24] MEDS ORDERED: hydrALAZINE 20 MG/ML VIAL SLOW IVP PRN (14:53)
[2019-04-24] MEDS ORDERED: Acetaminophen 500 MG TAB PO PRN (14:53)
[2019-04-24] MEDS ORDERED: Ketorolac Tromethamine 30 MG/ML VIAL IVP SCH (15:00)
[2019-04-24] MEDS: Sodium Chloride 0.9% 1,000 ML IV SCH (15:07)
--- NOTE | 2019-04-24 16:21 | HP ---
PRIMARY CARE PROVIDER: [facility]. CHIEF COMPLAINT: Nausea and vomiting. HISTORY OF PRESENT ILLNESS: This is a 24-year-old male, who presents to [facility] Emergency Department complaining of less than 24 hours of severe nausea and protracted vomiting. The patient states he woke around 1:00 a.m. with abdominal cramping and severe nausea leading to emesis. The patient denied any blood in his vomit or bloody stools, but states he was at his uncle's house the day before at a barbecue. The patient denied any other family members with similar symptoms, recent travel, exposure history or medication exposure. The patient states he has been on Keflex since late February 2019 for protracted treatment for recurrent cellulitis of his lower extremities. The patient also states he takes a lactobacillus tablet daily. The patient denied any excessive alcohol intake or illicit drug use. The patient admits to abdominal cramping, which is diffuse, nonradiating and denied diarrhea or dysuria. The patient denied any recent surgical intervention, but states he had a remote history of appendectomy in 2019. In the emergency room, the patient received intravenous normal saline in addition to Levaquin, Flagyl, morphine sulfate, Toradol, Ativan, and Zofran. The patient was transferred to the medical floor for further evaluation. PAST MEDICAL HISTORY: Recurrent cellulitis of the right lower extremity on suppressive therapy with Keflex. PAST SURGICAL HISTORY: Status post appendectomy. CURRENT MEDICATIONS: 1. Keflex 500 mg p.o. b.i.d. 2. Lactobacillus one capsule p.o. daily. ALLERGIES: NO KNOWN DRUG ALLERGIES. FAMILY HISTORY: No inheritable diseases as per patient report. SOCIAL HISTORY: Resides in [place], [place]. Accompanied by his mother. Social alcohol use. No tobacco or illicit drug use. Works in construction. REVIEW OF SYSTEMS: CONSTITUTIONAL: Negative for weight loss or gain, ability to conduct usual activities. SKIN: Negative for rash, itching. EYES: Negative for double vision, pain. ENT/MOUTH: Negative for nose bleeding, neck stiffness, pain, tenderness. CARDIOVASCULAR: Negative for palpitations, dyspnea on exertion, orthopnea. RESPIRATORY: Negative for shortness of breath, wheezing, cough, hemoptysis, fever or night sweats. GASTROINTESTINAL: Negative for poor appetite, abdominal pain, heartburn, nausea, vomiting, constipation, or diarrhea. GENITOURINARY: Negative for urgency, frequency, dysuria, nocturia. MUSCULOSKELETAL: Negative for pain, swelling. NEUROLOGIC/PSYCHIATRIC: Negative for anxiety, depression. ALLERGY/IMMUNOLOGIC: Negative for skin rash, bleeding tendency. Otherwise negative except as stated per HPI. PHYSICAL EXAMINATION: VITAL SIGNS: On admission, blood pressure 117/61, pulse 94, respiratory rate 22, temperature 98.5 degrees Fahrenheit, O2 saturation 98% on room air. GENERAL APPEARANCE: This is a 24-year-old male, alert and oriented x3, pleasant, responsive, in no acute distress. HEENT: Pupils are equal, round, reactive to light and accommodation. Extraocular muscles are intact. No scleral icterus. No conjunctival injection. Nares patent. OP is clear. Teeth in good repair. NECK: Supple. No cervical adenopathy. No thyromegaly. No carotid bruits. No JVD appreciated. Cervical spine with full active and passive range of motion. No meningeal signs noted. CHEST: Lungs are clear to auscultation bilaterally. CARDIOVASCULAR: S1 and S2 without noted murmur, rub, or gallop. ABDOMEN: Rounded, soft with mild tenderness to palpation diffusely. Bowel sounds are positive in all 4 quadrants. No palpable mass. EXTREMITIES: Warm and dry with fair turgor. No clubbing, cyanosis, or asymmetric edema appreciated. Pulses are palpable distally at the dorsalis pedis, posterior tibial, and popliteal arteries bilaterally. Capillary refill less 2 seconds. NEUROLOGIC: Cranial nerves 2 through 12 are grossly intact. No focal or lateralizing signs appreciated. PERTINENT LABORATORY AND X-RAY FINDINGS: Sodium 141, potassium 3.8, chloride 105, CO2 of 13, BUN 23, creatinine 1.03, estimated GFR of 89, glucose 62, lactic acid level 1.8, calcium 10.1, AST 45, ALT of 24, alkaline phosphatase 112, albumin 5.6, lipase 39. CBC showed a white blood cell count of 23.5, hemoglobin 16, hematocrit 47, and platelet count 251 with 75% neutrophils. Urinalysis, positive for ketones. CT of the abdomen and pelvis dated 04/24/2019, showed a subtle inflammatory appearance of the right colon. ASSESSMENT AND PLAN: 1. Acute gastroenteritis. The patient will be admitted to the medical floor. We will continue empiric antibiotic coverage with Levaquin 750 mg IV daily with additional Flagyl 500 mg IV q.8 hours. Continue supportive management with IV fluids and Toradol for pain control. No diarrhea currently, but if diarrhea occurs, we will check stool studies. 2. Intractable nausea and vomiting. Suspect secondary to #1. We will continue IV fluids with normal saline in addition to Zofran 4 mg IV q.6 hours p.r.n. Clear liquids as tolerated. 3. Metabolic acidosis. Suspect secondary to #1. We will continue IV fluids and management as outlined previously. Repeat CO2 level in the a.m. 4. Right lower extremity cellulitis. Clinically resolved. Hold Keflex. 5. Prophylaxis. SCDs while in bed. Pepcid 20 mg p.o. b.i.d. CODE STATUS: Full. Surrogate medical decision maker is the patient's mother. Job ID: [id number]
[2019-04-24] MEDS: Ketorolac Tromethamine 30 MG/ML VIAL IVP SCH ×2 (17:07→20:55)
[2019-04-24] MEDS ORDERED: metroNIDAZOLE 500 MG in Premix Bag 1 BAG IVPB SCH (20:00)
[2019-04-24] MEDS: Famotidine 20 MG TAB PO SCH (20:54)
[2019-04-24] MEDS: metroNIDAZOLE 500 MG in Premix Bag 1 BAG IVPB SCH (20:55)
[2019-04-25] MEDS: Ketorolac Tromethamine 30 MG/ML VIAL IVP SCH ×2 (03:49→08:46)
[2019-04-25] MEDS: Sodium Chloride 0.9% 1,000 ML IV SCH (03:49)
[2019-04-25 04:59] VITALS: TEMP 98.1
[2019-04-25] MEDS: metroNIDAZOLE 500 MG in Premix Bag 1 BAG IVPB SCH (05:00)
[2019-04-25 07:40] LABS: Hemoglobin 12.8 g/dL (14.0-18.0); Mean Corpuscular HGB CONC 34.4 g/dL (32.0-36.0); Mean Corpuscular Hemoglobin 29.9 pg (27.0-31.0); Mean Platelet Volume 8.7 fL (7.4-10.4); Platelet Count 186 thou/uL (130-400); RBC Distribution Width 12.1 % (11.5-14.5); Red Blood Cell (RBC) Count 4.28 mill/uL (4.70-6.10); White Blood Cell (WBC) Count 5.4 thou/uL (4.8-10.8)
[2019-04-25 07:49] LABS: ALT (SGPT) 14 U/L (8-55); AST (SGOT) 25 U/L (5-34); Albumin 3.9 g/dL (3.5-5.0); Alkaline Phosphatase 77 U/L (40-110); Anion Gap 8 mmol/L (10-20); BUN (Urea Nitrogen) 11 mg/dL (8.9-20.6); Bilirubin, Total 0.8 mg/dL (0.2-1.2); Calc. Creatinine Clearance 124 mL/min (70-130); Calcium 8.7 mg/dL (7.8-10.44); Carbon Dioxide 24 mmol/L (22-29); Chloride 110 mmol/L (98-107); Estimated GFR-MDRD Greater than 90; Globulin 2.2 g/dL (2.4-3.5); Glucose 92 mg/dL (70-105); Potassium 4.1 mmol/L (3.5-5.1); Protein, Total 6.1 g/dL (6.0-8.3); Sodium 138 mmol/L (136-145)
[2019-04-25 08:21] LABS: Band 2 % (5-11); Lymphocytes 31 % (21-51); MDiff Complete? YES; Monocytes 6 % (0-10); Neutrophil 61 % (42-75); RBC Morphology Normal
[2019-04-25] MEDS: Famotidine 20 MG TAB PO SCH (08:44)
[2019-04-25] MEDS ORDERED: Saccharomyces boulardii 250 MG CAP PO SCH (09:00)
[2019-04-25 11:07] VITALS: BP 118/65
--- NOTE | 2019-04-25 11:27 | DIS ---
DATE OF ADMISSION: 04/24/2019 DATE OF DISCHARGE: 04/25/2019 DISCHARGE DIAGNOSES: 1. Acute gastroenteritis, likely viral, resolving. 2. Intractable nausea and vomiting, resolved. 3. Metabolic acidosis secondary to acute gastroenteritis, resolved. 4. Right lower extremity cellulitis, resolving. CONSULTATIONS: None. PERTINENT LABORATORY AND X-RAY FINDINGS: CO2 ranged between 13 to 24. Creatinine ranged between 0.95 to 1.03. Lactic acid level 1.8. AST ranged between 25 to 45. ALT ranged between 14 to 24. Lipase 39. CBC showed a white blood cell count ranging between 5.4 to 23.5, hemoglobin ranged between 12.8 to 16.1. Blood cultures x2 dated 04/24/2019, showed no growth to date. CT of the abdomen and pelvis dated 04/24/2019, showed subtle inflammatory appearance of the right colon. HOSPITAL COURSE: The patient was admitted to the medical floor after presenting with intractable nausea and vomiting of less than 24 hours' duration. The patient was placed on IV fluids and given antiemetics with CT imaging of the abdomen and pelvis performed showing mild inflammatory process of the right colon. The patient was placed on empiric antibiotic coverage with Levaquin and Flagyl. However, the patient exhibited no evidence of diarrhea during the hospital stay. The patient rapidly clinically improved quicker than anticipated with supportive management , IV fluids, and antiemetics. Suspected etiology of viral gastroenteritis now resolving. I have examined the patient at the time of discharge and discussed followup instructions. The patient verbalized understanding and in agreement and ready for discharge on 2019. DISCHARGE MEDICATIONS: 1. Keflex 500 mg p.o. b.i.d. 2. Lactobacillus one capsule p.o. daily. FOLLOWUP: The patient may follow up with the [facility] after discharge. CONDITION ON DISCHARGE: Stable. ACTIVITY: Ad-italo. DIET: Regular. CODE STATUS: Full. DISPOSITION: Home on 04/25/2019. Job ID: [id number] [facility]
== END 2019-04-25 12:43 | disposition home or self-care (01) | DRG 392 ==
LOC: ERS 08:56 → T4-B 11:46
PROVIDERS: ADMIT Family Medicine; ATTEND Family Medicine
DX: A08.4 Viral intestinal infection, unspecified (principal); E87.2 Acidosis; L03.115 Cellulitis of right lower limb; E86.0 Dehydration; Z90.49 Acquired absence of other specified parts of digestive tract
CPT/HCPCS: 36415; 74177; 80053; 81003; 83605; 83690; 85007; 85025; 85027; 87040; J0500; J1885; J1956; J2060; J2270; J2405; Q9967

== ENCOUNTER 2019-05-05 21:56 | Emergency (ER) | payer SELFPAY | END 2019-05-05 23:21 | disposition home or self-care (01) | LOC: ERS 21:56 | DX: I80.8 Phlebitis and thrombophlebitis of other sites (principal) | CPT/HCPCS: 99283 ==

== ENCOUNTER 2019-08-10 14:19 | Emergency (ER) | payer SELFPAY ==
[2019-08-10] MEDS ORDERED: Ondansetron PF 4 MG/2 ML Vial ONE (15:18)
[2019-08-10] MEDS ORDERED: Morphine 4 MG/ML VIAL ONE (15:18)
[2019-08-10 15:36] LABS: #Basophils 0.1 thou/uL (0.0-0.2); #Lymphocytes 0.4 thou/uL (1.20-3.40); #Monocytes 0.7 thou/uL (0.11-0.59); #Neutrophils 10.8 thou/uL (1.40-6.50); %Basophils 1.1 % (0.0-1.0); %Eosinophils 0.1 % (0.0-10.0); %Lymphocytes 3.1 % (21.0-51.0); %Monocytes 6.1 % (0.0-10.0); %Neutrophils 89.6 % (42.0-75.0); Hemoglobin 15.1 g/dL (14.0-18.0); Mean Corpuscular HGB CONC 33.7 g/dL (32.0-36.0); Mean Corpuscular Volume 86.1 fL (78.0-98.0); Mean Platelet Volume 8.1 fL (7.4-10.4); Platelet Count 187 thou/uL (130-400); RBC Distribution Width 11.2 % (11.5-14.5)
[2019-08-10 15:57] LABS: ALT (SGPT) 19 U/L (8-55); AST (SGOT) 20 U/L (5-34); Albumin 4.8 g/dL (3.5-5.0); Alkaline Phosphatase 101 U/L (40-110); Anion Gap 15 mmol/L (10-20); BUN (Urea Nitrogen) 14 mg/dL (8.9-20.6); Bilirubin, Total 0.7 mg/dL (0.2-1.2); Calc. Creatinine Clearance 0 mL/min (70-130); Calcium 9.8 mg/dL (7.8-10.44); Carbon Dioxide 22 mmol/L (22-29); Chloride 103 mmol/L (98-107); Estimated GFR-MDRD 89; Globulin 3.2 g/dL (2.4-3.5); Glucose 95 mg/dL (70-105); Potassium 3.6 mmol/L (3.5-5.1); Sodium 136 mmol/L (136-145)
[2019-08-10] MEDS ORDERED: Clindamycin/D5W 900 mg/50 ml Premix Bag ONE (16:00)
--- NOTE | 2019-08-10 16:17 | CT ---
CT right leg with IV contrast HISTORY: Pain and swelling. Right leg redness. FINDINGS: Exam was performed in arterial phase. The femoral, popliteal, and lower leg arterial struct ures are widely patent with good three-vessel runoff to the level of the right ankle. No distortion or disturbance of the arterial tracts. While there may be slight effacement of the intramuscular fat planes of the lower leg, no focal fluid collections or expansile muscular bundles are apparent. Osseous structures are intact. Scattered small bone islands are evident, most notable at the acetabul um and base of the greater trochanter. At the right groin, a lobular lymph node is 2.4 cm x 1.6 cm greatest diameters. A popliteal lymph nod e is 1.6 cm greatest diameter. IMPRESSION : No acute abnormalities are demonstrated. Reactive appearing right inguinal and popliteal lymph nodes.
[2019-08-10] MEDS ORDERED: Iopamidol-370 76% 500 ML 1 ML ONE (16:33)
[2019-08-10] MEDS ORDERED: Lorazepam 2 MG/ML VIAL ONE (16:49)
[2019-08-10] MEDS ORDERED: Ketorolac Tromethamine 30 MG/ML VIAL ONE (16:49)
== END 2019-08-10 17:30 | disposition home or self-care (01) ==
LOC: ERS 14:19
DX: L03.115 Cellulitis of right lower limb (principal)
CPT/HCPCS: 36415; 80053; 82550; 83605; 85025; 87040; 96365; 96375; J1885; J2060; J2270; J2405; J3490; Q9967

== ENCOUNTER 2019-08-10 22:47 | Inpatient (IN) | payer SELFPAY ==
[~2019-08-10 22:47] MED LIST changes: -ISOVUE-370 76%-LOCM 1 ML ONE; +Iopamidol 370 76% 100 ML VIAL ONE
[2019-08-10] MEDS ORDERED: Vancomycin 1 GM/200 ML BAG ONE (23:21)
[2019-08-10] MEDS ORDERED: Cefepime 2 GM VIAL ONE (23:21)
[2019-08-10 23:22] LABS: Hemoglobin 14.7 g/dL (14.0-18.0); Mean Corpuscular HGB CONC 34.4 g/dL (32.0-36.0); Mean Corpuscular Hemoglobin 29.5 pg (27.0-31.0); Mean Corpuscular Volume 85.8 fL (78.0-98.0); Mean Platelet Volume 8.1 fL (7.4-10.4); Platelet Count 185 thou/uL (130-400); RBC Distribution Width 11.4 % (11.5-14.5); Red Blood Cell (RBC) Count 4.97 mill/uL (4.70-6.10); White Blood Cell (WBC) Count 10.6 thou/uL (4.8-10.8)
[2019-08-10] MEDS ORDERED: Ketorolac Tromethamine 30 MG/ML VIAL ONE (23:22)
[2019-08-10 23:33] LABS: Band 18 % (5-11); Lymphocytes 6 % (21-51); MDiff Complete? YES; Monocytes 4 % (0-10); Neutrophil 72 % (42-75); Platelet Morphology Comment Appears Adequate
[2019-08-10] MEDS ORDERED: Acetaminophen 500 MG TAB ONE (23:35)
[2019-08-10] MEDS ORDERED: Ondansetron PF 4 MG/2 ML Vial ONE (23:35)
[2019-08-10 23:42] LABS: ALT (SGPT) 16 U/L (8-55); AST (SGOT) 19 U/L (5-34); Albumin 4.6 g/dL (3.5-5.0); Alkaline Phosphatase 96 U/L (40-110); Anion Gap 15 mmol/L (10-20); BUN (Urea Nitrogen) 16 mg/dL (8.9-20.6); Bilirubin, Total 0.7 mg/dL (0.2-1.2); Calc. Creatinine Clearance 0 mL/min (70-130); Calcium 9.3 mg/dL (7.8-10.44); Carbon Dioxide 22 mmol/L (22-29); Chloride 103 mmol/L (98-107); Estimated GFR-MDRD 84; Globulin 2.8 g/dL (2.4-3.5); Glucose 104 mg/dL (70-105); Potassium 3.9 mmol/L (3.5-5.1); Protein, Total 7.4 g/dL (6.0-8.3); Sodium 136 mmol/L (136-145)
[2019-08-11] MEDS ORDERED: Acetaminophen 325 MG TAB PO PRN ×2 (00:01→04:58)
[2019-08-11] MEDS ORDERED: Ondansetron ODT 4 MG TAB PO PRN (00:01)
--- NOTE | 2019-08-11 00:24 | PDOC.FPRHP ---
- History of Present Illness Chief Complaint: right leg pain History of Present Illness: Pt is a 24 yo M who presents with worsening pain of his lower right leg. Patient has a history of 6 episodes of cellulitis since 2016, all of which have required hospitalization according to patient. He states 2-3 days ago he started to feel bad and had subjective fever and chills. He began throwing up multiple times a day and had associated nausea and epigastric stomach pain that was worse when he ate. The abdominal pain does not radiate, and he denies any blood in his stool or changes in his bowel habits. He also noticed he had a "rash" on his lower right leg, and pain started to develop. The pain is now a 10 /10 and he describes it as sharp needles that come and go. He says this pain is similar to the leg pain he has had with his previous episodes of cellulitis. He denies any obvious trauma to the area, or infected cuts or bug bites. He came to the ER yesterday afternoon (08/09) with complaints of right leg pain, for which he was sent home on pain meds and antibiotics. He said his pain got worse which prompted him to come back to the ER. ED Course: Yesterday (08/09) patient came to the ED with complaints of right leg pain, and ER physician was concerned about necrotizing fasciitis, but CT was normal. He was sent home on antibiotics and pain meds. Upon second arrival to the ED, patient endorsed increased pain and was found to have a fever of 103 and HR of 130 meeting sepsis criteria. He was given 2L of fluids and was started on Cefepime and Vancomycin. - Allergies/Adverse Reactions Allergies Allergy/AdvReac Type Severity Reaction Status Date / Time No Known Drug Allergies Allergy Verified 04/06/19 14:34 - Home Medications Medication Instructions Recorded Confirmed Type Ibuprofen [Motrin] 600 mg PO Q6HR PRN #60 tab 01/30/17 08/11/19 Rx Acetaminophen [Tylenol Regular 650 mg PO Q4H PRN tab 05/05/18 08/11/19 Rx Strength] Cephalexin [Keflex] 500 mg PO Q12H 30 Days #60 cap 03/03/19 08/11/19 Rx Lactobacillus Acidophilus 1 each PO DAILY 30 Days #30 capsule 03/03/19 08/11/19 Rx [Acidophilus Lactobacilli] - History PMHx: Denies PSHx: Appendectomy in 2019 FHx: Denies Social: Lives at home by himself. Works in construction. Denies drug or tobacco. Social alcohol use. - Review of Systems General: reports: fever/chills Respiratory: reports: shortness of breath. denies: cough Cardiovascular: denies: chest pain, edema Gastrointestinal: reports: nausea, vomiting, abdominal pain. denies: diarrhea, constipation Genitourinary: denies: incontinence, dysuria Skin: reports: lesions, other Musculoskeletal: denies: swelling Neurological: denies: numbness, weakness Psychological: denies: anxiety, depression - Vital signs BP: 112/87 HR: 133 RR: 24 Tmax: 102 Pox: 98% on RA Wt: 77.1kg - Physical Exam Constitutional: awake, alert and oriented, well developed HEENT: normocephalic and atraumatic, EOMI, conjunctiva clear Neck: trachea midline Chest: no-tender to palpation Heart: normal S1/S2, pulses present, no edema, other (tachycardic) Lungs: CTAB, good air movement, no wheezing -Lungs: tachypneic Abdomen: bowel sounds present -Abdomen: painful to palpation in the epigastric region with guarding Musculoskeletal: normal structure, normal tone Neurological: no focal deficit, CN II-XII intact Skin: good turgor -Skin: Cellulitis noted in lower right leg over the olivia. Marked outline on earlier admission on 08/09 and it has spread. Irregular borders, not sharply demarcated Psychiatric: normal mood and affect, good judgment and insight, intact recent and remote memory FMR H&P: Results - Labs Result Diagrams: 08/11/19 00:35 08/11/19 00:35 Lab results: WBC 10.6 thou/uL (4.8-10.8) 08/10/19 23:09 Hgb 14.7 g/dL (14.0-18.0) 08/10/19 23:09 Hct 42.7 % (42.0-52.0) 08/10/19 23:09 MCV 85.8 fL (78.0-98.0) 08/10/19 23:09 Plt Count 185 thou/uL (130-400) 08/10/19 23:09 Band Neuts % (Manual) 18 % (5-11) H 08/10/19 23:09 Sodium 136 mmol/L (136-145) 08/10/19 23:09 Potassium 3.9 mmol/L (3.5-5.1) 08/10/19 23:09 Chloride 103 mmol/L (98-107) 08/10/19 23:09 Carbon Dioxide 22 mmol/L (22-29) 08/10/19 23:09 BUN 16 mg/dL (8.9-20.6) 08/10/19 23:09 Creatinine 1.09 mg/dL (0.7-1.3) 08/10/19 23:09 Glucose 104 mg/dL (70-105) 08/10/19 23:09 Lactic Acid 1.5 mmol/L (0.5-2.2) 08/10/19 23:09 Calcium 9.3 mg/dL (7.8-10.44) 08/10/19 23:09 Total Bilirubin 0.7 mg/dL (0.2-1.2) 08/10/19 23:09 AST 19 U/L (5-34) 08/10/19 23:09 ALT 16 U/L (8-55) 08/10/19 23:09 Alkaline Phosphatase 96 U/L (40-110) 08/10/19 23:09 Serum Total Protein 7.4 g/dL (6.0-8.3) 08/10/19 23:09 Albumin 4.6 g/dL (3.5-5.0) 08/10/19 23:09 FMR H&P: A/P - Problem List (1) Abdominal pain Current Visit: Yes Status: Acute Code(s): R10.9 - UNSPECIFIED ABDOMINAL PAIN (2) Cellulitis of leg, right Current Visit: No Status: Acute Code(s): L03.115 - CELLULITIS OF RIGHT LOWER LIMB (3) Leg pain, right Current Visit: No Status: Acute Code(s): M79.604 - PAIN IN RIGHT LEG - Plan 1. Sepsis 2/2 to Cellulitis -patient is tachycardic with a fever, meeting sepsis criteria -received 2L in the ER, on MIVF 125mL/hr LR -on Cefepime and Vancomycin -blood cultures and urine cultures pending -CRP, procal pending -CT in ED was negative -continue to monitor 2. Abdominal pain -N/V x 3 days -lipase pending Disposition/LOS: Full code DVT Prophylaxis Lovenox FMR H&P: Upper Level - Plan Date/Time: 08/11/19 0024 IVicente DO, have evaluated this patient and agree with findings/plan as outlined by internal revenue agent resident. Pertinent changes/additions are listed here. 24 yo w/ a pmhx sig for recurrent cellulitis He reports pain, redness and swelling for the past three days, similar to episodes he has had in the past that have resolved with abx. Of note, he did present to the ED earlier today and was dcd after pain control and a neg CT on clinda. He returned when the pain worsened. His exam is significant for a marked area of erythema and edema without breaks in the skin, neurovascularly intact with no pain on passive stretching. Labs wnl, will obtain CT w/ con, CRP and procal. Continue vanc and cefepime, IVF. Admit to medical inpatient for sepsis 2/2 cellulitis for IV abx therapy and monitoring. Of note, pt complaining of abdominal pain, will order lipase. If persists consider eval of GB. Admit to inpatient medical for iv abx, ELOS>48hrs Addendum - Attending - Attending Attestation Date/Time: 08/11/19 [id number] I personally evaluated the patient and discussed the management with Dr. English I agree with the History, Examination, Assessment and Plan documented above with any addition or exceptions noted below- 24 yo M who presents with worsening pain of his lower right leg. Patient has a history of 6 episodes of cellulitis since 2016, all of which have required hospitalization according to patient. He states 2-3 days ago he started to feel bad and had subjective fever and chills. He began throwing up multiple times a day and had associated nausea and epigastric stomach pain that was worse when he ate. The abdominal pain does not radiate, and he denies any blood in his stool or changes in his bowel habits. He also noticed he had a "rash" on his lower right leg, and pain started to develop. The pain is now a 10/10 and he describes it as sharp needles that come and go. He says this pain is similar to the leg pain he has had with his previous episodes of cellulitis. PMH/PSH/Meds/SH reviewed and agree with resident's documentation. Afebrile VSS Exam repeated by me and agree with resident's findings Labs: WBC=8.9, CRP=5.97, pfomyj=209 A/P: 1) Recurrent cellulitis- continue current abx and monitor regression; CT of leg with some fat stranding; no abscess, 2) Pancreatitis- start clear liquids and monitor.
[2019-08-11] MEDS ORDERED: Lactated Ringer's 1,000 ML IV SCH (00:30)
[2019-08-11] MEDS ORDERED: Ondansetron PF 4 MG/2 ML Vial ONE (00:32)
[2019-08-11] MEDS ORDERED: Morphine 4 MG/ML VIAL ONE (00:32)
[2019-08-11 01:01] LABS: #Lymphocytes 0.6 thou/uL (1.20-3.40); #Monocytes 0.6 thou/uL (0.11-0.59); #Neutrophils 7.7 thou/uL (1.40-6.50); %Basophils 0.4 % (0.0-1.0); %Eosinophils 0.1 % (0.0-10.0); %Lymphocytes 6.5 % (21.0-51.0); %Monocytes 6.4 % (0.0-10.0); %Neutrophils 86.6 % (42.0-75.0); Hemoglobin 12.6 g/dL (14.0-18.0); Mean Corpuscular HGB CONC 34.5 g/dL (32.0-36.0); Mean Corpuscular Hemoglobin 29.9 pg (27.0-31.0); Mean Corpuscular Volume 86.5 fL (78.0-98.0); Mean Platelet Volume 8.5 fL (7.4-10.4); Platelet Count 150 thou/uL (130-400); RBC Distribution Width 11.4 % (11.5-14.5); Red Blood Cell (RBC) Count 4.21 mill/uL (4.70-6.10); White Blood Cell (WBC) Count 8.9 thou/uL (4.8-10.8)
[2019-08-11 01:16] LABS: CRP (Inflammatory) 5.97 mg/dL (= or < 0.5)
[2019-08-11 01:31] LABS: ALT (SGPT) 12 U/L (8-55); AST (SGOT) 15 U/L (5-34); Albumin 3.7 g/dL (3.5-5.0); Alkaline Phosphatase 77 U/L (40-110); Anion Gap 12 mmol/L (10-20); BUN (Urea Nitrogen) 15 mg/dL (8.9-20.6); Bilirubin, Total 0.6 mg/dL (0.2-1.2); Calc. Creatinine Clearance 0 mL/min (70-130); Calcium 7.5 mg/dL (7.8-10.44); Carbon Dioxide 17 mmol/L (22-29); Chloride 107 mmol/L (98-107); Estimated GFR-MDRD Greater than 90; Globulin 2.1 g/dL (2.4-3.5); Glucose 117 mg/dL (70-105); Potassium 3.3 mmol/L (3.5-5.1); Protein, Total 5.8 g/dL (6.0-8.3); Sodium 133 mmol/L (136-145)
[2019-08-11 02:09] VITALS: BMI 26.4
[2019-08-11] MEDS: Lactated Ringer's 1,000 ML IV SCH ×6 (02:32→20:51)
[2019-08-11] MEDS: Ketorolac Tromethamine 30 MG/ML VIAL IVP PRN ×2 (04:53→17:37)
[2019-08-11] MEDS: Vancomycin HCl 1.25 GM in Sodium Chloride 0.9% 250 ML 250 ML IVPB SCH ×3 (04:54→22:00)
[2019-08-11] MEDS ORDERED: Ibuprofen 600 MG TAB PO PRN (04:58)
[2019-08-11 05:25] LABS: Bilirubin Negative (Negative); Blood, Urine Negative (Negative); Glucose, Urine (Dipstick) Negative (Negative); Ketone, Urine Negative (Negative); Leukocyte Negative (Negative); Nitrite Negative (Negative); Protein, Urine (Dipstick) Negative (Neg-Trace); Specific Gravity, Urine 1.015 (1.005-1.030); Urobilinogen 0.2 mg/dL (Less than 2)
[2019-08-11 05:31] LABS: Clarity Clear (Clear)
[2019-08-11 05:38] LABS: Bacteria/HPF 1+ HPF (None Seen); RBC/HPF None Seen HPF (0-3); Squamous Epithelial None Seen HPF (0-3); WBC/HPF 0-3 HPF (0-3)
[2019-08-11 06:56] LABS: Cardiac Risk 3.7 (Less than 4.5)
--- NOTE | 2019-08-11 07:53 | ULT ---
Exam: Right upper quadrant ultrasound: HISTORY: Suspected pancreatitis. Patient has had epigastric abdominal pain for 3 days with nausea. COMPARISON: 01/15/2016 FINDINGS: Liver: Within normal limits Gallbladder: No evidence of gallbladder calculi, gallbladder wall thickening, or pericholecystic flui d. Common bile duct: The common duct is normal in caliber measuring 0.3 cm in diameter. Pancreas: Limited visualized pancreas demonstrates a normal sonographic appearance. No peripancreatic fluid is appreciated. Right kidney: Right kidney demonstrates a normal sonographic appearance. The right kidney measures 9 .8 cm in length. IVC: The visualized IVC demonstrates a normal sonographic appearance. There has been no interval change when compared to prior right upper quadrant ultrasound exam. IMPRESSION: Right upper quadrant ultrasound is within normal limits, no gallbladder calculi are seen.
[2019-08-11] MEDS: Lactinex Tablet PO SCH (08:16)
[2019-08-11] MEDS: Enoxaparin Sodium 40 MG/0.4 ML SYRINGE SC SCH (08:16)
[2019-08-11] MEDS ORDERED: VANCOMYCIN HCL IVPB SCH (09:00)
[2019-08-11] MEDS ORDERED: SODIUM CHLORIDE 0.9% IVPB SCH (09:00)
--- NOTE | 2019-08-11 09:28 | CT ---
PRELIMINARY REPORT/DIRECT RADIOLOGY/EMERGENCY AFTER HOURS PROCEDURE EXAM: CT right lower extremity (hip, femur, knee, tib/fib, ankle, and foot), with IV contrast CLINICAL HISTORY: PT C/O RIGHT LEG PAIN AND CELLULITIS. PT WAS SEEN EALIER AT THE ER FOR SAME COMPLAI NT. WORSENING PAIN. * repeat of CT for reevaluation for interval change TECHNIQUE: Axial images were acquired through the right (hip, femur, knee, tib/fib, ankle, and foot) with IV contrast. Reformatted images were reviewed. COMPARISON: CT\CO\SR - CT LOWER EXT RT W CON - 08/10/2019 03:49 PM CDT FINDINGS: BONES: Skin thickening and with mild underlying fat stranding along the anterior aspect of the distal thigh and superficial to the patella and patellar tendon, likely reflecting cellulitis, not signific antly changed. Small sclerotic foci in the right iliac wing, proximal right femur, and talus consistent with bone is lands. The findings of acute fracture. No dislocation. SOFT TISSUES: Abnormally enlarged enhancing inguinal lymph nodes bilaterally (right larger than left) . The right inguinal lymph node is unchanged. The left inguinal lymph node was outside the field of v iew on prior exam. No soft tissue gas. No evidence of drainable abscess. IMPRESSION: 1. Abnormally enlarged enhancing inguinal lymph nodes bilaterally (right larger than left). The right inguinal lymph node is unchanged. The left inguinal lymph node was outside the field of view on prio r exam. 2. Skin thickening and with mild underlying fat stranding along the anterior aspect of the distal thi gh and superficial to the patella and patellar tendon, likely reflecting cellulitis, not significantl y changed. 3. No soft tissue gas. 4. No evidence of drainable abscess. ELECTRONICALLY SIGNED BY: Ha Crenshaw MD Aug 11, 2019 12:27:53 AM CDT FINAL REPORT RIGHT LOWER EXTREMITY CT SCAN WITH IV CONTRAST: EMERGENCY AFTER HOURS EXAM: TIME: 12:08 AM. DATE: 08/11/2019. COMPARISON: 08/10/2019, 3:52 p.m. study. FINDINGS: Stable minimally enlarged right inguinal and popliteal lymph nodes. Very subtle superficial prepatel lar and infrapatellar fat stranding, nonspecific. No evidence for soft tissue gas or myonecrosis. IMPRESSION: Stable exam. This report is in agreement with the preliminary report. POS: RRE
[2019-08-11] MEDS: Cefepime 2 GM in Sodium Chloride 0.9% 100 ML IVPB SCH (10:09)
[2019-08-11] MEDS ORDERED: Potassium Chloride 20 MEQ TAB PO SCH (10:30)
[2019-08-12] MEDS: Cefepime 2 GM in Sodium Chloride 0.9% 100 ML IVPB SCH ×2 (00:10→11:49)
[2019-08-12] MEDS: Lactated Ringer's 1,000 ML IV SCH ×2 (05:26→15:05)
[2019-08-12 06:01] LABS: Vancomycin, Trough 13.2 ug/mL
[2019-08-12] MEDS: Vancomycin HCl 1.25 GM in Sodium Chloride 0.9% 250 ML 250 ML IVPB SCH (06:25)
[2019-08-12 07:37] LABS: #Eosinphils 0.2 thou/uL (0.0-0.7); #Monocytes 0.8 thou/uL (0.11-0.59); #Neutrophils 5.3 thou/uL (1.40-6.50); %Basophils 0.1 % (0.0-1.0); %Eosinophils 2.1 % (0.0-10.0); %Lymphocytes 14.3 % (21.0-51.0); %Neutrophils 72.4 % (42.0-75.0); Hemoglobin 13.6 g/dL (14.0-18.0); Mean Corpuscular HGB CONC 34.7 g/dL (32.0-36.0); Mean Corpuscular Volume 86.3 fL (78.0-98.0); Mean Platelet Volume 7.9 fL (7.4-10.4); Platelet Count 167 thou/uL (130-400); RBC Distribution Width 11.1 % (11.5-14.5); Red Blood Cell (RBC) Count 4.54 mill/uL (4.70-6.10); White Blood Cell (WBC) Count 7.2 thou/uL (4.8-10.8)
[2019-08-12 08:01] LABS: Anion Gap 13 mmol/L (10-20); BUN (Urea Nitrogen) 6 mg/dL (8.9-20.6); Calc. Creatinine Clearance 154 mL/min (70-130); Calcium 8.9 mg/dL (7.8-10.44); Carbon Dioxide 24 mmol/L (22-29); Chloride 105 mmol/L (98-107); Estimated GFR-MDRD Greater than 90; Glucose 94 mg/dL (70-105); Potassium 3.5 mmol/L (3.5-5.1); Sodium 138 mmol/L (136-145)
--- NOTE | 2019-08-12 08:13 | PDOC.FM ---
- Subjective Subjective: Patient feels okay this morning. Redness is within margins at top border and at margins on bottom border in area of right lower extremity cellulitis. He rates his pain as an 8 out of 10, has significant tenderness still. He was able to tolerate eating a sandwich last night for dinner. Says his stomach hurt some but he was able to keep it down. Denies any vomiting, minimal nausea. He is hesitant to eat breakfast this morning, afraid it will cause his stomach to hurt again although states he is hungry. - Objective MAR Reviewed: Yes Vital Signs & Weight: Vital Signs (12 hours) Temp Pulse Resp BP Pulse Ox 08/12/19 07:13 98.1 F 72 20 116/65 99 Weight Weight 76.657 kg I&O: 08/11/19 08/12/19 08/13/19 06:59 06:59 06:59 Intake Total 1500 Output Total 2000 Balance -500 Result Diagrams: 08/12/19 07:23 08/12/19 07:23 Phys Exam - Physical Examination Constitutional: NAD HEENT: moist MMs, sclera anicteric Neck: supple, full ROM Respiratory: no wheezing, clear to auscultation bilateral Cardiovascular: RRR, no significant murmur Musculoskeletal: no edema, pulses present Neurological: normal sensation, moves all 4 limbs Psychiatric: normal affect, A&O x 3 Deviation from normal: erythema within/at marked borders & sig. TTP of RLE Dx/Plan (1) Abdominal pain Code(s): R10.9 - UNSPECIFIED ABDOMINAL PAIN Status: Acute Qualifiers: Abdominal location: epigastric Qualified Code(s): R10.13 - Epigastric pain (2) Cellulitis of leg, right Code(s): L03.115 - CELLULITIS OF RIGHT LOWER LIMB Status: Acute - Plan Plan: Patient is a 24 yo male who presents with RLE redness & pain is admitted for cellulitis: Sepsis 2/2 to Right LE Cellulitis -sepsis criteria met on admission with tachycardia, fever, WBC -received 2L in the ER, continue on maintenance IVF 125mL/hr LR -on Cefepime and Vancomycin -blood cultures and urine cultures pending -CRP 5.97, procal 0.19 -CT in ED was negative -continue to monitor -consult ID today, Dr. Mercado--appreciate recs Pancreatitis -N/V x 3 days -Lipase 266 -RUQ U/S: no pancreatic fluid, normal -Lipid panel wnl -advance diet at tolerated, encourage PO intake Dispo: Stable, admitted to inpatient on medical floor. Continue antibiotics, ID consulted. Anticipate discharge in next 24-48 hours. Code status: Full VTE: Lovenox Diet: Regular PCP: arranged for DSRIP, has appt to establish care at [facility] on 08/16/2019 Addendum - Attending - Attending Attestation Date/Time: 08/12/19 [id number] I personally evaluated the patient and discussed the management with Dr. Latif I agree with the History, Examination, Assessment and Plan documented above with any addition or exceptions noted below - Patient feeling better; states that abdominal pain is better; toelrating diet. Still having pain in leg but better. Afebrile VSS. A/P: 1) Pancreatitis- improved; cotninue current care, 2) Recurrent cellulitis- redness and pain improving; continue current abx. Dr. Mercado consulted due to recurrent nature of cellulitis
[2019-08-12] MEDS: Lactinex Tablet PO SCH (09:07)
[2019-08-12] MEDS: Enoxaparin Sodium 40 MG/0.4 ML SYRINGE SC SCH (09:07)
[2019-08-12] MEDS ORDERED: Vancomycin 1.5 GRAM/300 ML BAG 1.5 GM in Premix Bag 1 BAG IVPB SCH (14:00)
--- NOTE | 2019-08-12 15:20 | CON ---
DATE OF CONSULTATION: 08/12/2019 HISTORY OF PRESENT ILLNESS: A 24-year-old whom I saw in 04/2018, the last time, who developed cellulitis of the right leg. He has findings in the feet, which are consistent with tenia pedis and he apparently took penicillin V until June reportedly this year and then stopped it. He is back now with cellulitis recurrence of the right leg same area previously identified. No headaches, chills, or fever. No respiratory symptoms. No abdominal pain. Initial findings are BP 150/86, temperature 99.2, and O2 saturation 99. Exam showed the area of erythema in the anterior right leg, not very extensive. He is currently receiving cefepime and vancomycin. He appears in no distress with still moderate pain in the right leg. No headaches. Remainder of 10-point review of systems are negative. MEDICAL HISTORY: 1. Cellulitis of the right leg. 2. Tenia pedis. 3. Appendectomy. ALLERGIES: NONE. 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 No drug use. FAMILY HISTORY: Noncontributory. CURRENT MEDICATIONS: 1. Cefepime. 2. Vancomycin. 3. P.r.n. medications. PHYSICAL EXAMINATION: VITAL SIGNS: Afebrile since admission. Other vital signs are normal. SKIN: A relatively small area of a redness with tenderness in the right anterior leg and evidence of exfoliation vesicles in the skin around the toes, right and left side, consistent with tenia. No lymphadenopathy. HEENT: Noncontributory. NECK: Supple. LUNGS: Symmetric, clear breath sounds. HEART: S1 and S2. Regular rate. No S3 or S4. ABDOMEN: Soft, not distended or tender. No ascites. No bladder distention. EXTREMITIES: No joint inflammatory activity. NEUROLOGIC: Nonfocal. LABORATORY DATA: White cell count 10.6 and now 7.2, hemoglobin was 14 and now 13.6, platelets 167, and 72% neutrophils. Sodium 138 and creatinine 0.81. Liver profile was unremarkable. Glucose 117. CRP 5.97. Lipase was high at 266 for some reason. Urinalysis was normal. Two sets of blood culture, no growth thus far. All his blood cultures in the past were negative. Ultrasound of the abdomen was carried out and it showed within normal limits. Lower extremity CT with no acute abnormalities. ASSESSMENT: Recurrent cellulitis and tinea pedis. Clinically, the cellulitis does not appear to be severe. The symptoms are somewhat out of proportion to the clinical findings. Switch him to cefazolin IV. Discontinue remainder antimicrobials. Discharge on Keflex and then transition to Pen VK for another 12 months. It is essential to treat his tinea pedis, but I would advise submission of scrapings from the skin to confirm the diagnosis, submission for fungal cultures, those take a few weeks to result, in the outpatient setting on followup, then he can be treated with a Lamisil or similar agent if confirmed. Job ID: [id number]
[2019-08-12] MEDS: Ketorolac Tromethamine 30 MG/ML VIAL IVP PRN (18:00)
[2019-08-12] MEDS: ceFAZolin 1 GM/D5W 1 GM in Premix Bag 1 BAG IVPB SCH (21:29)
[2019-08-12] MEDS ORDERED: CEFAZOLIN 1 GM in Sodium Chloride 0.9% 100 ML IVPB SCH (22:00)
--- NOTE | 2019-08-13 05:37 | PDOC.FM ---
- Subjective Subjective: Patient is resting comfortably in bed. States that his pain is improving, however rated his pain as an 8/10 and states that he had difficulty sleeping last night. He notes that he is ready to go home and thinks tylenol and ibuprofen will be enough to manage his pain. He notes that his abdominal pain has completely resolved. Denies fever, night sweats, nausea, vomiting. - Objective MAR Reviewed: Yes Vital Signs & Weight: Vital Signs (12 hours) Temp Pulse Resp BP Pulse Ox 08/12/19 19:09 97.9 F 69 18 128/71 99 Weight Weight 76.657 kg I&O: 08/11/19 08/12/19 08/13/19 06:59 06:59 06:59 Intake Total 1500 Output Total 2000 Balance -500 Result Diagrams: 08/12/19 07:23 08/12/19 07:23 Phys Exam - Physical Examination Constitutional: NAD HEENT: PERRLA, moist MMs Respiratory: clear to auscultation bilateral Cardiovascular: RRR Gastrointestinal: soft, no distention mild epigastric pain Musculoskeletal: pulses present Neurological: non-focal, normal sensation, moves all 4 limbs Psychiatric: normal affect, A&O x 3 Skin: normal turgor Deviation from normal: erythema within/at marked borders Dx/Plan - Plan Plan: Plan: Patient is a 24 yo male who presents with RLE redness & pain is admitted for cellulitis: Sepsis 2/2 to Right LE Cellulitis, Tinea Pedis -sepsis criteria met on admission with tachycardia, fever, WBC -received 2L in the ER, continue on maintenance IVF 125mL/hr LR -CRP 5.97, procal 0.19 -CT in ED was negative -blood cultures and urine cultures pending -ID consulted, Dr. Mercado--appreciate recs -on Cefazolin per ID - Per Dr. Mercado, pt will d/c on keflex then Pen VK for 12 months, will need scraping confirmation for tinea pedis Pancreatitis -N/V x 3 days -Lipase 266 -RUQ U/S: no pancreatic fluid, normal -Lipid panel wnl -advance diet at tolerated, encourage PO intake Dispo: Stable, admitted to inpatient on medical floor. Continue antibiotics, ID consulted. Anticipate discharge in next 24-48 hours. Code status: Full VTE: Lovenox Diet: Regular Dispo: likely home today with abx PCP: arranged for DSRIP, has appt to establish care at [facility] on 08/16/2019 I have discussed the case with Dr. Mcmahon. Addendum - Attending - Attending Attestation Date/Time: 08/13/19 [id number] I personally evaluated the patient and discussed the management with Dr. Costello I agree with the History, Examination, Assessment and Plan documented above will f/u with Dr Mercado and [facility].
[2019-08-13] MEDS: ceFAZolin 1 GM/D5W 1 GM in Premix Bag 1 BAG IVPB SCH (05:51)
[2019-08-13 07:32] VITALS: TEMP 97.8
[2019-08-13] MEDS: Lactinex Tablet PO SCH (08:31)
[2019-08-13] MEDS: Enoxaparin Sodium 40 MG/0.4 ML SYRINGE SC SCH (08:33)
[2019-08-13 12:18] VITALS: BP 126/70
--- NOTE | 2019-08-15 04:02 | DIS ---
DATE OF ADMISSION: 08/10/2019 DATE OF DISCHARGE: 08/13/2019 RESIDENT: Yane Costello DO ADMITTING ATTENDING: Aung Luther MD DISCHARGE ATTENDING: Ketan Mcmahon MD CONSULTS: Mayito Mercado MD PROCEDURES: None. PRIMARY DIAGNOSIS: Sepsis secondary to right lower extremity cellulitis. SECONDARY DIAGNOSES: Tinea pedis and pancreatitis. DISCHARGE MEDICATIONS: Cephalexin 500 mg oral t.i.d x 14 days, penicillin-V potassium 250 mg oral b.i.d. x 3 months following Keflex Discontinued medications: Keflex 500 mg oral every 12 hours. HISTORY OF PRESENT ILLNESS/HOSPITAL COURSE: Pt is a 24 yo M who presents with worsening pain of his lower right leg accompanied by a rash. Patient has a history of 6 episodes of cellulitis since 2016, all of which have required hospitalization according to patient. He states 2-3 days ago he started to feel bad and had subjective fever and chills. He began throwing up multiple times a day and had associated nausea and epigastric stomach pain that was worse when he ate.Denies any stool changes or blood in the vomit or stool. Patient states that he came to the ER on 08/10/2019 with complaints of right leg pain, had a normal CT, and he was sent home on pain meds and antibiotics. He said his pain got worse which prompted him to return to the ER. On this visit to the ED, the patient had a fever of 103 and a heart rate of 130 meeting sepsis criteria. He was given 2 L of fluids and was started on cefepime and vancomycin. CT showed stable, minimally enlarged right inguinal and popliteal lymph nodes, very subtle superficial prepatellar, infrapatella fat stranding, nonspecific. No evidence for soft tissue gas or myonecrosis. Patient's CRP was 5.97, procalcitonin was 0.19. Dr. Mercado, ID, was consulted and did not think the cellulitis appeared to be severe. Requested they switch to cefazolin IV and discharge on Keflex x14 days and then transition to Pen-VK for 12 months. He suggested scraping from the skin to confirm tinea pedis, submission for fungal cultures which take weeks, so he recommended them done in the outpatient setting on followup. On followup where he can then be treated with Lamisil or similar agent if confirmed. The patients abdominal pain and N/V was investigated and the patient was found to have a lipase of 266. Right upper quadrant ultrasound showed no pancreatic fluid. Lipid panel was within normal limits. The patient denies excessive drinking or history of gallstones. The patient's abdominal symptoms completely resolved by day 2. His diet was advanced to full normal diet. The patient was encouraged to follow up with his primary care physician in 7 days. The patient was also encouraged to follow up with Dr. Mercado in 3 to 4 weeks. DISPOSITION: Stable. DISCHARGE INSTRUCTIONS: Location: Home. Diet: No restrictions. Activity: As tolerated. Followup: Follow up with Dr. Mercado in 3 to 4 weeks and follow up with your primary care physician in 7 days. Job ID: [id number]
== END 2019-08-13 12:39 | disposition home or self-care (01) | DRG 871 ==
LOC: ERS 22:47 → T4-B 23:40
PROVIDERS: ADMIT Family Medicine; ATTEND Family Medicine
DX: A41.9 Sepsis, unspecified organism (principal); K85.90 Acute pancreatitis without necrosis or infection, unspecified; B35.3 Tinea pedis; L03.115 Cellulitis of right lower limb; Z90.49 Acquired absence of other specified parts of digestive tract
CPT/HCPCS: 36415; 76705; 80048; 80053; 80061; 80202; 81001; 83605; 83690; 84145; 85025; 86140; 87040; 87086; 93005; 96361; 96365; 96375; J0690; J0692; J1650; J1885; J2270; J2405; J3370; J3490; J7050; Q0162; Q9967